=== PATIENT | female | born 1990 | race Caucasian/White ===

== ENCOUNTER 2016-05-23 04:32 | Emergency (ER) | payer OTHER ==
[2016-05-23 04:49] VITALS: TEMP 98.6; BMI 41.6
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
[2016-05-23] MEDS ORDERED: SODIUM CHLORIDE 0.9% 500 ML INFUS.BAG IV ONE (05:02)
[2016-05-23 06:58] LABS: BASOPHIL 0.4 % (0-2.0); EOSINOPHIL 0.8 % (0-4.5); MCH 23.7 pg (25.7-33.7); MCHC 33.2 g/dl (32.0-36.0); MEAN CELL VOLUME 71.5 fl (80-96); MEAN PLT VOLUME 7.5 fl (7.5-11.1); NEUTROPHILS 76.4 % (42.8-82.8); PLATELET COUNT 319 K/MM3 (134-434); RDW 16.9 % (11.6-15.6); WHITE BLOOD COUNT 10.3 K/mm3 (4.0-10.0)
[2016-05-23] MEDS ORDERED: ACETAMINOPHEN 325 MG TABLET (FP) PO ONE (07:28)
[2016-05-23 07:32] LABS: INR 1.09 (0.82-1.09)
[2016-05-23 07:40] LABS: ALBUMIN 3.9 g/dl (3.4-5.0); ANION GAP 9 (8-16); BILIRUBIN,TOTAL 0.2 mg/dL (0.2-1.0); CALCIUM 9.4 mg/dL (8.5-10.1); CO2 25 mmol/L (21-32); CREATININE 0.7 mg/dL (0.55-1.02); GLUCOSE,RANDOM 94 mg/dL (74-106); SGOT/AST 19 U/L (15-37); SGPT/ALT 36 U/L (12-78); TOT PROT 8.9 g/dl (6.4-8.2)
[2016-05-23 07:41] LABS: ALK PHOS 95 U/L (45-117)
[2016-05-23] MEDS ORDERED: ACETAMINOPHEN 325 MG TABLET (FP) ONE (08:22)
[2016-05-23 11:48] VITALS: BP 118/70; PULSE 89
== END 2016-05-23 11:49 | disposition home or self-care (01) ==
LOC: JER 04:32
DX: S93.402A Sprain of unspecified ligament of left ankle, initial encounter (principal); V09.29XA Pedestrian injured in traffic accident involving other motor vehicles, initial encounter; Y92.414 Local residential or business street as the place of occurrence of the external cause; Y93.89 Activity, other specified; Y99.8 Other external cause status
CPT/HCPCS: 36415; 71010-TC; 73590-TC-LT; 73610-TC-LT; 73630-TC-LT; 80053; 84702; 85025; 85610; 85730; 86850; 86900; 86901; 99284-25

== ENCOUNTER 2016-05-27 19:36 | Emergency (ER) | payer OTHER ==
[2016-05-27 19:50] VITALS: BP 124/96; PULSE 98; TEMP 98.1; BMI 41.6
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
[2016-05-27] MEDS ORDERED: ACETAMINOPHEN 500 MG TABLET (FP) PO ONE (20:39)
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
[2016-05-27] MEDS ORDERED: ACETAMINOPHEN 325 MG TABLET (FP) ONE (20:41)
== END 2016-05-27 21:28 | disposition home or self-care (01) ==
LOC: JERFT 19:36
DX: F07.81 Postconcussional syndrome (principal); V03.10XA Pedestrian on foot injured in collision with car, pick-up truck or van in traffic accident, initial encounter; Y92.414 Local residential or business street as the place of occurrence of the external cause; Y93.89 Activity, other specified
CPT/HCPCS: 70450-TC; 84703; 99281-25

== ENCOUNTER 2016-11-20 18:03 | Emergency (ER) | payer OTHER ==
[2016-11-20 18:16] VITALS: BP 126/72; PULSE 79; TEMP 99.1; BMI 47.2
--- NOTE | 2016-11-20 19:17 | PDOC ---
History of Present Illness - General Chief Complaint: Ear Problem Stated Complaint: EAR INFECTION Time Seen by Provider: 11/20/16 18:36 - History of Present Illness Initial Comments: 11/20/16 19:16 CHIEF COMPLAINT: ear pain HISTORY OF PRESENT ILLNESS: 26 yo F with hx of asthma, anxiety, and "anger issues" presents to fast track with R ear pain since today. She reports that she woke up this morning with "an ear infection" and went to her PCP. She was given ear drops "that started with a C and had steroids in it", but this afternoon the swelling and pain worsened after she used the drops. She reports pain "all around my ear, behind my ear, and down my jaw." She denies any fever , chills, nausea, vomiting, or diarrhea. Patient reports the pain is an 8/10. PAST MEDICAL HISTORY: Denies past medical history FAMILY HISTORY: Denies SOCIAL HISTORY: Denies tobacco, alcohol, illicit drug use. SURGICAL HISTORY: Denies ALLERGIES: mushrooms, sulfa REVIEW OF SYSTEMS General/Constitutional: Denies fever or chills. Denies weakness, weight change. HEENT: R ear pain since this morning. Denies change in vision.Denies sore throat. Cardiovascular: Denies chest pain or shortness of breath. Respiratory: Denies cough, wheezing, or hemoptysis. Gastrointestinal: Denies nausea, vomiting, diarrhea or constipation. Denies rectal bleeding. Genitourinary: Denies dysuria, frequency, or change in urination. Musculoskeletal: Denies joint or muscle swelling or pain. Denies neck or back pain. Skin and breasts: Denies rash or easy bruising. PHYSICAL EXAM General Appearance: Well-appearing, appropriately dressed. No apparent distress. HEENT: Markedly tender, erythematous, and edematous R auditory canal. TM not visualized due to significant AC swelling. Tenderness to palpation to R temporal bone and over R mastoid. EOMI, PERRLA, normal ENT inspection, normal voice, TMs normal, pharynx normal. No conjunctival pallor. No photophobia, scleral icterus. Neck: Supple. Trachea midline. No tenderness, rigidity, carotid bruit, stridor , lymphadenopathy, or thyromegaly. Respiratory/Chest: Lungs CTAB. Cardiovascular: RRR. S1, S2. Musculoskeletal/Extremities: Normal inspection. FROM of all extremities, normal capillary refill. Pelvis Stable. No CVA tenderness. No tenderness to extremities, pedal edema, swelling, erythema or deformity. Integumentary: Appropriate color, dry, warm. No cyanosis, erythema, jaundice or rash Neurologic: weight guesser II-XII intact. Fully oriented, alert. Appropriate mood/affect. Motor strength 5/5. No appreciable EOM palsy, facial droop or sensory deficit. Past History - Past Medical History Allergies/Adverse Reactions: Allergies Allergy/AdvReac Type Severity Reaction Status Date / Time mushroom Allergy Severe Verified 11/20/16 18:13 Sulfa (Sulfonamide Allergy Intermediate Rash Verified 11/20/16 18:13 Antibiotics) [Sulfa(Sulfonamide Antibiotics)] Home Medications: Ambulatory Orders Amoxicillin/Potassium Clav [Augmentin 875-125 Tablet] 1 each PO BID #14 tablet 11/20/16 Asthma: Yes Cancer: No Cardiac Disorders: No Diabetes: No HTN: No Psychiatric Problems: Yes (ANXIETY/depression) Seizures: No Thyroid Disease: No - Reproductive History (#): 2 Para: 2 Cervical CA: No Dysfunctional Uterine Bleeding: No Ectopic : No Endometrial CA: No Polycystic Ovaries: No Therapeutic (s) & number: No Tubal Ligation: No Spontaneous : 0 - Immunization History Td Vaccination: Yes TDAP Vaccination: Yes Immunization Up to Date: Yes - Psycho/Social/Smoking Cessation Hx Anxiety: No Suicidal Ideation: No Smoking Status: No Smoking History: Current every day smoker Have you smoked in the past 12 months: Yes Number of Cigarettes Smoked Daily: 4 Information on smoking cessation initiated: No 'Breaking Loose' booklet given: 05/27/16 Hx Alcohol Use: No Drug/Substance Use Hx: No Substance Use Type: None Hx Substance Use Treatment: No *Physical Exam - Vital Signs Last Vital Signs Temp Pulse Resp BP Pulse Ox 99.1 F 79 19 126/72 100 11/20/16 18:13 11/20/16 18:13 11/20/16 18:13 11/20/16 18:13 11/20/16 18:13 ED Treatment Course - LABORATORY CBC & Chemistry Diagram: 11/20/16 21:30 11/20/16 21:30 - RADIOLOGY Radiology Studies Ordered: Category Date Time Status TEMPORAL BONES CT W/O CONTRAST [CT] Stat CT Scan 11/20/16 19:15 Ordered Medical Decision Making - Medical Decision Making 11/20/16 19:28 26 yo F with hx of asthma, anxiety, and "anger issues" presents to fast track with R ear pain since today. -urine preg -Temporal bone CT r/o mastoiditis 11/20/16 21:21 CT results: Partial opacification of the right middle ear with mild thickening of TM suggestive of OM. The ossicles repair unremarkable without evidence of bone destruction. There is also minimal effusion to the right mastoid air cells superiorly/medially without evidence of bone destruction/loss of septations. -CBC, CMP, ESR/CRP 11/20/16 22:45 Discussed case with covering ENT MD Woodall, who states patient should be placed on Augmentin as well as have a wick placed. Patient is to f/u in outpatient in office on Wednesday for wick removal/replacement. *DC/Admit/Observation/Transfer Diagnosis at time of Disposition: Otitis externa Qualifiers: Otitis externa type: unspecified type Chronicity: acute Laterality: right Qualified Code(s): H60.501 - Unspecified acute noninfective otitis externa, right ear - Discharge Dispostion Disposition: HOME Condition at time of disposition: Stable Admit: No - Prescriptions Prescriptions: Amoxicillin/Potassium Clav [Augmentin 875-125 Tablet] 1 each PO BID #14 tablet - Patient Instructions Printed Discharge Instructions: DI for Otitis Externa Additional Instructions: Please take medications as prescribed. Continue using the ear drops as prescribed by your primary care doctor. Follow up with ENT on WEDNESDAY as discussed for wick removal/replacement. If you experience any fever, nausea, vomiting, chills, diarrhea, or any new or worsening symptoms, please return to the ER.
[2016-11-20 21:56] LABS: BASOPHIL 0.2 % (0-2.0); EOSINOPHIL 0.7 % (0-4.5); MCH 23.9 pg (25.7-33.7); MCHC 32.8 g/dl (32.0-36.0); MEAN CELL VOLUME 72.9 fl (80-96); MEAN PLT VOLUME 8.6 fl (7.5-11.1); NEUTROPHILS 76.2 % (42.8-82.8); PLATELET COUNT 266 K/MM3 (134-434); RDW 16.8 % (11.6-15.6); WHITE BLOOD COUNT 11.4 K/mm3 (4.0-10.0)
[2016-11-20 22:31] LABS: ALBUMIN 4.2 g/dl (3.4-5.0); ANION GAP 10 (8-16); C-REACTIVE PROTEIN 5.2 MG/DL (0.00-0.3); CALCIUM 9.3 mg/dL (8.5-10.1); CO2 26 mmol/L (21-32); CREATININE 0.7 mg/dL (0.55-1.02); GLUCOSE,RANDOM 73 mg/dL (74-106); SGOT/AST 12 U/L (15-37); SGPT/ALT 18 U/L (12-78)
[2016-11-20 22:32] LABS: ALK PHOS 85 U/L (45-117); BILIRUBIN,TOTAL 0.5 mg/dL (0.2-1.0); TOT PROT 8.9 g/dl (6.4-8.2)
[2016-11-20] MEDS ORDERED: AMOX TR/POT CLAV 875MG/125MG TABLETS (FP) ONE (22:51)
[2016-11-20] MEDS ORDERED: NEOMYCIN/POLYMYXN/HC OTIC SOLUTION 10 ML BOTTLE ONE (22:57)
[2016-11-20] MEDS ORDERED: AMOX TR/POT CLAV 875MG/125MG TABLETS (FP) PO ONE (23:03)
== END 2016-11-20 23:06 | disposition home or self-care (01) ==
LOC: JERFT 18:03
DX: H60.501 Unspecified acute noninfective otitis externa, right ear (principal); F41.9 Anxiety disorder, unspecified; R45.4 Irritability and anger; J45.909 Unspecified asthma, uncomplicated
CPT/HCPCS: 36415; 70480-TC; 80053; 84703; 85025; 85651; 86140; 99281-25

== ENCOUNTER 2017-03-15 09:38 | Emergency (ER) | payer OTHER ==
[2017-03-15 09:44] VITALS: BP 106/51; PULSE 106; TEMP 98.1; BMI 46.0
[2017-03-15] MEDS ORDERED: ONDANSETRON *ODT* 4 MG TABLET SL ONE (11:31)
--- NOTE | 2017-03-15 11:36 | PDOC ---
History of Present Illness - General Chief Complaint: Nausea/Vomiting Stated Complaint: vomiting after eating [employer] Time Seen by Provider: 03/15/17 10:33 History Source: Patient Exam Limitations: No Limitations - History of Present Illness Travel History: No Initial Comments: 03/15/17 11:31 patient here with all of family suffering from same symptoms. States ate [employer] last night at approximately 5 AM woke up all vomiting hamburger and yi fries. Toddler daughter and 2 sons are ill with same. Denies fever, denies any ear or throat pain, no cough, no diarrhea Timing/Duration: reports: intermittent Quality: reports: mild, moderate, aching Abdominal Pain Onset Location: reports: generalized abdomen Pain Radiation: reports: no radiation Activities at Onset: reports: none Past History - Travel Traveled outside of the country in the last 30 days: No Close contact w/someone who was outside of country & ill: No - Past Medical History Allergies/Adverse Reactions: Allergies Allergy/AdvReac Type Severity Reaction Status Date / Time mushroom Allergy Severe Verified 03/15/17 09:46 Sulfa (Sulfonamide Allergy Intermediate Rash Verified 03/15/17 09:46 Antibiotics) [Sulfa(Sulfonamide Antibiotics)] Home Medications: Ambulatory Orders Ondansetron [Zofran *Odt*] 4 mg SL PRN PRN #14 od.tablet 03/15/17 Asthma: Yes Cancer: No Cardiac Disorders: No COPD: No Diabetes: No HTN: No Psychiatric Problems: Yes (ANXIETY/depression) Seizures: No Thyroid Disease: No - Reproductive History (#): 2 Para: 2 Cervical CA: No Dysfunctional Uterine Bleeding: No Ectopic : No Endometrial CA: No Polycystic Ovaries: No Therapeutic (s) & number: No Tubal Ligation: No Spontaneous : 0 - Immunization History Td Vaccination: Yes TDAP Vaccination: Yes Immunization Up to Date: Yes - Suicide/Smoking/Psychosocial Hx Smoking Status: No Smoking History: Current every day smoker Have you smoked in the past 12 months: Yes Number of Cigarettes Smoked Daily: 10 Information on smoking cessation initiated: Yes 'Breaking Loose' booklet given: 03/15/17 Hx Alcohol Use: No Drug/Substance Use Hx: No Substance Use Type: None Hx Substance Use Treatment: No Review of Systems - Review of Systems Able to Perform ROS?: Yes Is the patient limited Kiswahili proficient: Yes Constitutional: Yes: Symptoms Reported, See HPI, Loss of Appetite, Malaise. No : Chills, Fever HEENTM: Yes: See HPI. No: Symptoms Reported, Eye Pain Respiratory: Yes: See HPI. No: Symptoms reported, Cough ABD/GI: Yes: Symptoms Reported, See HPI, Diarrhea, Nausea, Poor Appetite, Vomiting (x 6) : Yes: See HPI. No: Symptoms Reported, Burning, Dysuria Musculoskeletal: No: Symptoms Reported All Other Systems: Reviewed and Negative *Physical Exam - Vital Signs Last Vital Signs Temp Pulse Resp BP Pulse Ox 98.1 F 106 H 19 106/51 98 03/15/17 09:41 03/15/17 09:41 03/15/17 09:41 03/15/17 09:41 03/15/17 09:41 - Physical Exam General Appearance: Yes: Nourished, Appropriately Dressed, Apparent Distress, Mild Distress HEENT: positive: YVON, Normal ENT Inspection, TMs Normal, Pharynx Normal Neck: positive: Tender, Supple. negative: Lymphadenopathy (R), Lymphadenopathy (L) Respiratory/Chest: positive: Lungs Clear, Normal Breath Sounds Gastrointestinal/Abdominal: positive: Normal Bowel Sounds, Soft. 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 We'll treat with Zofran and conservative measures *DC/Admit/Observation/Transfer Diagnosis at time of Disposition: Food poisoning Qualifiers: Encounter type: initial encounter Injury intent: undetermined intent Qualified Code(s): T62.94XA - Toxic effect of unspecified noxious substance eaten as food , undetermined, initial encounter - Discharge Dispostion Disposition: HOME Condition at time of disposition: Stable Admit: No - Referrals Referrals: Nedra Hernandez MD [Primary Care Provider] - - Patient Instructions Printed Discharge Instructions: DI for Vomiting -- Adult Additional Instructions: Rest, drink lots of fluids: Teas, water, soups Laura antoinette, carbonated beverages for the bubbles May try peppermint teas Avoid heavy , spicy or fatty foods until symptoms have resolved Avoid contact with others until fevers and symptoms resolved Lots of handwashing and good hygiene Continue [id number]-kld-gaplnsm medications for symptomatic relief Tylenol or Motrin for fever and pain May use Zofran-one tablet dissolved on tongue as needed for nauseousness. May repeat times one every 8 hours Followup with private physician in one to 2 days as needed Return to emergency department for worsened symptoms, fevers, dehydration - Post Discharge Activity Forms/Work/School Notes: Back to Work
[2017-03-15] MEDS ORDERED: ONDANSETRON *ODT* 4 MG TABLET ONE (11:39)
== END 2017-03-15 11:42 | disposition home or self-care (01) ==
LOC: JERFT 09:38 → JER 09:38 → JERFT 11:42
DX: T62.8X1A Toxic effect of other specified noxious substances eaten as food, accidental (unintentional), initial encounter (principal); R11.2 Nausea with vomiting, unspecified; Y92.511 Restaurant or cafe as the place of occurrence of the external cause
CPT/HCPCS: 99281-25

== ENCOUNTER 2017-05-08 10:15 | Emergency (ER) | payer OTHER ==
[2017-05-08 10:21] VITALS: BP 120/71; PULSE 116; TEMP 98.2; BMI 46.9
--- NOTE | 2017-05-08 11:28 | PDOC ---
History of Present Illness - General Chief Complaint: Nausea Stated Complaint: NAUSEA Time Seen by Provider: 05/08/17 11:05 History Source: Patient Exam Limitations: No Limitations - History of Present Illness Travel History: No Initial Comments: 05/08/17 11:26 Patient is here with complaints of any breast tenderness, nauseousness, and 5 episodes of vomiting this morning. Is uncertain as to status. LMP March Denies fever, denies dysuria, denies any vaginal drainage or discharge. Timing/Duration: reports: getting worse Abdominal Pain Onset Location: reports: suprapubic, generalized abdomen Pain Radiation: reports: no radiation Past History - Travel Traveled outside of the country in the last 30 days: No Close contact w/someone who was outside of country & ill: No - Past Medical History Allergies/Adverse Reactions: Allergies Allergy/AdvReac Type Severity Reaction Status Date / Time mushroom Allergy Severe Verified 05/08/17 10:21 Sulfa (Sulfonamide Allergy Intermediate Rash Verified 05/08/17 10:21 Antibiotics) [Sulfa(Sulfonamide Antibiotics)] Home Medications: Ambulatory Orders Ondansetron [Zofran *Odt*] 4 mg SL PRN PRN #14 od.tablet 03/15/17 Asthma: Yes Cancer: No Cardiac Disorders: No COPD: No Diabetes: No HTN: No Psychiatric Problems: Yes (ANXIETY/depression) Seizures: No Thyroid Disease: No - Reproductive History (#): 2 Para: 2 Cervical CA: No Dysfunctional Uterine Bleeding: No Ectopic : No Endometrial CA: No Polycystic Ovaries: No Therapeutic (s) & number: No Tubal Ligation: No Spontaneous : 0 - Immunization History Td Vaccination: Yes TDAP Vaccination: Yes Immunization Up to Date: Yes - Suicide/Smoking/Psychosocial Hx Smoking Status: No Smoking History: Current every day smoker Have you smoked in the past 12 months: Yes Number of Cigarettes Smoked Daily: 5 Information on smoking cessation initiated: No 'Breaking Loose' booklet given: 03/15/17 Hx Alcohol Use: No Drug/Substance Use Hx: No Substance Use Type: None Hx Substance Use Treatment: No *Physical Exam - Vital Signs Last Vital Signs Temp Pulse Resp BP Pulse Ox 98.2 F 116 H 20 120/71 98 05/08/17 10:18 05/08/17 10:18 05/08/17 10:18 05/08/17 10:18 05/08/17 10:18 - Physical Exam General Appearance: Yes: Nourished, Appropriately Dressed. No: Apparent Distress HEENT: positive: YVON, Normal ENT Inspection, TMs Normal, Pharynx Normal Neck: positive: Supple. negative: Lymphadenopathy (R), Lymphadenopathy (L) Respiratory/Chest: positive: Lungs Clear, Normal Breath Sounds Gastrointestinal/Abdominal: positive: Normal Bowel Sounds, Tender, Soft. 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 intact, Fully Oriented, Alert, Normal Mood/ Affect, Normal Response, Motor Strength 07/31 ED Treatment Course - ADDITIONAL ORDERS Additional order review: Laboratory Results 05/08/17 11:17 Urine HCG, Qual Negative *DC/Admit/Observation/Transfer Diagnosis at time of Disposition: Gastroenteritis - Discharge Dispostion Disposition: HOME Condition at time of disposition: Stable Admit: No - Referrals - Patient Instructions Printed Discharge Instructions: DI for Viral Gastroenteritis -- Adult Additional Instructions: Rest, drink lots of fluids: Teas, water, soups Laura antoinette, carbonated beverages for the bubbles May try peppermint teas Avoid heavy , spicy or fatty foods until symptoms have resolved Avoid contact with others until fevers and symptoms resolved Lots of handwashing and good hygiene Continue ovqv-pko-mvzzwxs medications for symptomatic relief Tylenol or Motrin for fever and pain May use Zofran-one tablet dissolved on tongue as needed for nauseousness. May repeat times one every 8 hours Followup with private physician in one to 2 days as needed Return to emergency department for worsened symptoms, fevers, dehydration - Post Discharge Activity Forms/Work/School Notes: Back to Work
== END 2017-05-08 12:11 | disposition home or self-care (01) ==
LOC: JERFT 10:15
DX: K52.9 Noninfective gastroenteritis and colitis, unspecified (principal); J45.909 Unspecified asthma, uncomplicated; F41.8 Other specified anxiety disorders; F17.210 Nicotine dependence, cigarettes, uncomplicated
CPT/HCPCS: 84703; 99281-25

== ENCOUNTER 2017-05-15 09:05 | Emergency (ER) | payer OTHER ==
[2017-05-15 09:11] VITALS: BP 133/68; PULSE 97; TEMP 98.2; BMI 46.0
--- NOTE | 2017-05-15 09:27 | PDOC ---
History of Present Illness - General Chief Complaint: Hematuria Stated Complaint: POSSIBLE UTI Time Seen by Provider: 05/15/17 09:25 History Source: Patient Exam Limitations: No Limitations - History of Present Illness Travel History: No Initial Comments: 05/15/17 10:06 Acute onset ofpain and burning, with noted blood in urine this morning With frequency. denies fever, denies back pain, has never had a urinary tract infection. Timing/Duration: reports: constant, getting worse Quality: reports: moderate, aching, sharpness Pain Radiation: reports: no radiation Past History - Past Medical History Allergies/Adverse Reactions: Allergies Allergy/AdvReac Type Severity Reaction Status Date / Time mushroom Allergy Severe Verified 05/15/17 09:08 Sulfa (Sulfonamide Allergy Intermediate Rash Verified 05/15/17 09:08 Antibiotics) [Sulfa(Sulfonamide Antibiotics)] Home Medications: Ambulatory Orders Cephalexin Monohydrate [Keflex -] 500 mg PO Q8H #21 capsule 05/15/17 Phenazopyridine HCl [Pyridium -] 200 mg PO PC #12 tablet 05/15/17 Asthma: Yes Cancer: No Cardiac Disorders: No COPD: No Diabetes: No HTN: No Psychiatric Problems: Yes (ANXIETY/depression) Seizures: No Thyroid Disease: No - Reproductive History (#): 2 Para: 2 Cervical CA: No Dysfunctional Uterine Bleeding: No Ectopic : No Endometrial CA: No Polycystic Ovaries: No Therapeutic (s) & number: No Tubal Ligation: No Spontaneous : 0 - Immunization History Td Vaccination: Yes TDAP Vaccination: Yes Immunization Up to Date: Yes - Suicide/Smoking/Psychosocial Hx Smoking Status: No Smoking History: Current every day smoker Have you smoked in the past 12 months: Yes Number of Cigarettes Smoked Daily: 5 Information on smoking cessation initiated: No 'Breaking Loose' booklet given: 03/15/17 Hx Alcohol Use: No Drug/Substance Use Hx: No Substance Use Type: None Hx Substance Use Treatment: No *Physical Exam - Vital Signs Last Vital Signs Temp Pulse Resp BP Pulse Ox 98.2 F 97 H 18 133/68 100 05/15/17 09:08 05/15/17 09:08 05/15/17 09:08 05/15/17 09:08 05/15/17 09:08 - Physical Exam General Appearance: Yes: Nourished, Appropriately Dressed, Apparent Distress, Mild Distress HEENT: positive: YVON, Normal ENT Inspection, Normal Voice, TMs Normal, Pharynx Normal Neck: positive: Supple. negative: Tender Respiratory/Chest: positive: Lungs Clear Gastrointestinal/Abdominal: positive: Normal Bowel Sounds, Tender, Soft. negative: Flat Musculoskeletal: positive: Normal Inspection. 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, Fully Oriented, Alert, Normal Mood/ Affect, Normal Response, Motor Strength 5/5 Progress Note - Progress Note Progress Note: Urinary Tract infection, we'll treat with Keflex and Pyridium *DC/Admit/Observation/Transfer Diagnosis at time of Disposition: UTI (urinary tract infection) Qualifiers: Urinary tract infection type: acute cystitis Hematuria presence: with hematuria Qualified Code(s): N30.01 - Acute cystitis with hematuria - Discharge Dispostion Disposition: HOME Condition at time of disposition: Stable - Prescriptions Prescriptions: Cephalexin Monohydrate [Keflex -] 500 mg PO Q8H #21 capsule Phenazopyridine HCl [Pyridium -] 200 mg PO PC #12 tablet - Referrals Referrals: Nedra Hernandez MD [Primary Care Provider] - - Patient Instructions Printed Discharge Instructions: DI for Urinary Tract Infection (UTI) Additional Instructions: Rest, drink lots of fluids: Teas, water, soups Avoid contact with others until fevers and symptoms resolved Lots of handwashing and good hygiene Continue vxfp-esg-[id number] medications for symptomatic relief Tylenol or Motrin for fever and pain Continue all of antibiotics until completed Followup with private physician in one week for repeat urinalysis/reevaluation Return to emergency department for worsened symptoms, fevers, dehydration - Post Discharge Activity
[2017-05-15 09:44] LABS: URINE APPEARANCE CLOUDY; URINE BILIRUBIN NEGATIVE (NEGATIVE); URINE BLOOD 3+ (NEGATIVE); URINE COLOR RED; URINE GLUCOSE (UA) NEGATIVE (NEGATIVE); URINE KETONE NEGATIVE (NEGATIVE); URINE NITRITE NEGATIVE (NEGATIVE); URINE UROBILINOGEN NEGATIVE mg/dL (0.2-1.0)
[2017-05-15 09:57] LABS: URINE LEUK ESTERASE 3+ (NEGATIVE); URINE PROTEIN 2+ (NEGATIVE)
[2017-05-15 10:03] LABS: EPI CELLS RARE /HPF (FEW); URINE MUCUS RARE; YEAST FEW
[2017-05-15 10:04] LABS: HCG,QUALITATIVE URINE NEGATIVE
[2017-05-15] MEDS ORDERED: CEPHALEXIN MONOHYDRATE 500 MG CAPSULE (UD) PO ONE (10:08)
[2017-05-15] MEDS ORDERED: PHENAZOPYRIDINE HCL 100 MG TABLET (FP) PO ONE (10:08)
[2017-05-15] MEDS ORDERED: CEPHALEXIN MONOHYDRATE 500 MG CAPSULE (UD) ONE (10:09)
[2017-05-15] MEDS ORDERED: PHENAZOPYRIDINE HCL 100 MG TABLET (FP) ONE (10:09)
--- NOTE | 2017-05-18 08:00 | PDOC ---
Patient Follow-up (Call Back) - Post ED Follow - Up Condition at time of discharge: Stable Disposition at time of original discharge: HOME Reason for Call Back: Abnwl. Microbiology (Sensitive to cephalosporins. Pt. yenifer treated with keflex at this time.)
== END 2017-05-15 10:24 | disposition home or self-care (01) ==
LOC: JERFT 09:05
DX: N30.01 Acute cystitis with hematuria (principal); F41.8 Other specified anxiety disorders; F17.210 Nicotine dependence, cigarettes, uncomplicated
CPT/HCPCS: 81003; 81015; 84703; 87086; 87186; 99281-25

== ENCOUNTER 2017-10-07 05:02 | Day surgery (SDC) | payer OTHER ==
[2017-10-06 10:20] VITALS: BMI 46.0
[2017-10-07] MEDS ORDERED: PHENYLEPHRINE HCL 10 MG/1 ML SINGLE DOSE VIAL ONE (07:02)
[2017-10-07] MEDS ORDERED: KETOROLAC TROMETHAMINE 30 MG/1 ML VIAL ONE (07:02)
[2017-10-07] MEDS ORDERED: LIDOCAINE HCL/PF 2% SDV 5ML VIAL ONE (07:02)
[2017-10-07] MEDS ORDERED: PROPOFOL 20 ML ONE ×2 (07:03)
[2017-10-07] MEDS ORDERED: ePHEDrine SULFATE 50 MG/1 ML AMPULE ONE (07:03)
[2017-10-07] MEDS ORDERED: MIDAZOLAM HCL 2 MG/2 ML SINGLE DOSE VIAL ONE (07:03)
[2017-10-07] MEDS ORDERED: SUCCINYLCHOLINE CHLORIDE 200 MG/10 ML VIAL ONE (07:03)
[2017-10-07] MEDS ORDERED: DEXAMETHASONE SOD PHOSPHATE 4 MG/1 ML VIAL ONE (07:06)
[2017-10-07] MEDS ORDERED: DESFLURANE GAS 240 ML BOTTLE IH ONE (07:10)
[2017-10-07] MEDS ORDERED: IBUPROFEN 800 MG/8 ML IJ IVPB PRN (08:46)
[2017-10-07] MEDS ORDERED: ACETAMINOPHEN 325 MG TABLET (FP) PO PRN (08:46)
--- NOTE | 2017-10-07 08:46 | HP ---
History & Physical Update - History History: No Change - Physical Physical: No Change - Assessment Assessment: No Change - Plan Plan: No Change (agree with H&P from 10/05/17 - missed for suction D&C)
[2017-10-07] MEDS ORDERED: oxyCODONE HCL 5 MG TABLET PO PRN (08:53)
[2017-10-07] MEDS ORDERED: ONDANSETRON 4 MG/2 ML VIAL IVPUSH PRN (08:53)
[2017-10-07] MEDS ORDERED: PROMETHAZINE HCL 25 MG/1 ML VIAL IVPUSH PRN (08:53)
--- NOTE | 2017-10-07 08:54 | OP ---
Operative Note - Note: Operative Date: 10/07/17 ([id number]) Pre-Operative Diagnosis: missed Findings: normal female external genitalia Post-Operative Diagnosis: Same as Pre-op Surgeon: Tracy Chester Anesthesiologist/CYLINDER PRESS OPERATOR HELPER: Kingsley Alston Anesthesia: General (LMA) Specimens Removed: products of conception Estimated Blood Loss (mls): 10 Operative Report Dictated: Yes
[2017-10-07] MEDS ORDERED: LACTATED RINGERS SOLUTION 1,000 ML IV SCH (09:00)
--- NOTE | 2017-10-07 09:22 | OP ---
DATE OF OPERATION: 10/07/2017 PREOPERATIVE DIAGNOSIS: Missed . POSTOPERATIVE DIAGNOSIS: Missed . PROCEDURE: Suction dilatation and curettage. SURGEON: Tracy Chester DO FOOD SERVICE UTILITY WORKER: None. ANESTHESIA: LMA by Dr. Kingsley Alston. COMPLICATIONS: None. ESTIMATED BLOOD LOSS: 10 mL. DISPOSITION: Stable to PACU with sponge and instrument count correct. BRIEF HISTORY AND PROCEDURE: Patient is a 26-year-old female who had been seen in the office with a positive test and followed for several weeks with ultrasounds and beta HCGs. The beta HCGs were not rising appropriately and the ultrasound showed evidence of a missed . The patient was diagnosed on October 05, 2017, and the patient was counseled on her options and she elected to undergo dilation and curettage. The patient was admitted to [facility] on October 07, 2017. Consent for the procedure was signed. She was then taken back to the operating room and placed in the dorsal lithotomy position and given LMA anesthesia by Dr. Kingsley Alston. She was prepped and draped in the usual sterile fashion and a hard timeout was performed. A speculum was placed inside the vagina. The anterior lip of the cervix was grasped with a tenaculum and the cervix was dilated to accommodate a 7 curved suction curet which was advanced to the fundus. Several passes of the curved curet were completed to remove tissue. One pass on all 4 rodríguez of the uterus with a sharp curet was completed and adequate uterine cri was noted. Two more passes with the suction curet were completed to remove all the remaining tissue and debris and then all instruments were removed from the cervix and the uterus. Minimal bleeding was noted from the cervical os. Any bleeding from the tenaculum sites was stopped with a brief application of an Allis clamp and then all instruments were removed. All sponges and instruments were counted and noted to be correct. The patient was awoken from anesthesia and recovering in a stable condition in the PACU at the time of this dictation. TRACY CHESTER DO /[id number]
[2017-10-07 09:56] VITALS: PULSE 71
[2017-10-07 11:04] VITALS: BP 114/58; TEMP 98.7
--- NOTE | 2017-10-08 17:13 | PATH ---
Surgical Pathology Report Patient Name: ASHLY DEL ROSARIO Med. Rec. #: [id number] /Age/Gender: 1990 (Age: 26) / F Account: [id number] Location: [facility] SURGICAL Taken: 10/07/2017 Received: 10/07/2017 Reported: 10/08/2017 Physicians: Tracy Chester M.D. Specimen(s) Received PRODUCTS OF CONCEPTION (ALSO PLACED TISSUE IN RPMI) Clinical History Missed Final Diagnosis LABELED "CHROMOSOMAL ANALYSIS", POC REMOVAL: CHORIONIC VILLI PRESENT, CONSISTENT WITH PRODUCTS OF CONCEPTION. Electronically Signed Darryl Burk M.D. Gross Description Received fresh labeled "chromosome analysis," is a 9.5 x 7.5 x 2.0 cm aggregate of randolph-red soft tissue fragments admixed with blood clot. Possible villous tissue is identified. No somatic tissue is identified. A retail field representative portion is placed in RPMI solution and sent for chromosomal analysis. Additional retail field representative portions are submitted in 3 cassettes. /10/07/2017 saudi/10/07/2017
== END 2017-10-07 10:40 | disposition home or self-care (01) ==
LOC: JASU-SURG 05:02
PROVIDERS: ATTEND Obstetrics & Gynecology
PROC: 10D17ZZ Extraction of Products of Conception, Retained, Via Natural or Artificial Opening (ICD-10-PCS; principal; 2017-10-07 08:00)
DX: O02.1 Missed abortion (principal)
CPT/HCPCS: 88305-TC; 94760

== ENCOUNTER 2017-10-10 19:37 | Emergency (ER) | payer OTHER ==
[2017-10-10 19:45] VITALS: BP 112/93; PULSE 92; TEMP 98.4; BMI 46.0
[2017-10-10] MEDS ORDERED: SODIUM CHLORIDE 1,000 ML IV STA (20:35)
[2017-10-10] MEDS ORDERED: morphine CARPU-JECT 4 MG/1 ML DISP.SYRIN IVPUSH ONE (20:35)
--- NOTE | 2017-10-10 20:37 | PDOC ---
History of Present Illness - General Chief Complaint: Pain Stated Complaint: PAIN Time Seen by Provider: 10/10/17 20:20 History Source: Patient, Old Records Exam Limitations: No Limitations - History of Present Illness Initial Comments: 10/10/17 20:33 This is a 26-year-old woman with past medical history of asthma who presents emergency Department with abdominal cramping and vaginal bleeding status post D& C on 10/07. Patient is . Patient states she was pain free until approximately 8:00 yesterday evening when she began to experience lower abdominal cramping stronger than her usual menstrual cramps which she describes as "active labor." Patient states the pain is tolerable with prescription medication she received status post D&C twice today at approximately 5 PM began to have heavy vaginal bleeding. Patient states she has soaked 4 heavy flow overnight pads since 5:00 this evening. Patient reports feeling dizzy. She denies fevers, chills, vaginal discharge, shortness of breath, nausea, vomiting , dysuria or rectal bleeding. Past History - Past Medical History Allergies/Adverse Reactions: Allergies Allergy/AdvReac Type Severity Reaction Status Date / Time mushroom Allergy Severe Verified 10/07/17 06:17 Sulfa (Sulfonamide Allergy Intermediate Rash Verified 10/07/17 06:17 Antibiotics) [Sulfa(Sulfonamide Antibiotics)] Home Medications: Ambulatory Orders NK [No Known Home Medication] 10/06/17 Anemia: No Asthma: Yes Cancer: No Cardiac Disorders: No CVA: No COPD: No CHF: No DVT: No Dementia: No Diabetes: No GI Disorders: No Disorders: Yes (misscarriage) HTN: No Hypercholesterolemia: No Liver Disease: No Psychiatric Problems: Yes (ANXIETY/depression) Seizures: No Thyroid Disease: No - Surgical History Orthopedic Surgery: Yes (left ankle) - Reproductive History (#): 2 Para: 2 Cervical CA: No Dysfunctional Uterine Bleeding: No Ectopic : No Endometrial CA: No Polycystic Ovaries: No Therapeutic (s) & number: No Tubal Ligation: No Spontaneous : 0 - Immunization History Td Vaccination: Yes TDAP Vaccination: Yes Immunization Up to Date: Yes - Suicide/Smoking/Psychosocial Hx Smoking Status: No Smoking History: Current some day smoker Have you smoked in the past 12 months: No Number of Cigarettes Smoked Daily: 5 Information on smoking cessation initiated: Yes 'Breaking Loose' booklet given: 03/15/17 Hx Alcohol Use: No Drug/Substance Use Hx: No Substance Use Type: None Hx Substance Use Treatment: No Review of Systems - Review of Systems Able to Perform ROS?: Yes Is the patient limited Latvian proficient: No Constitutional: No: Symptoms Reported HEENTM: No: Symptoms Reported Respiratory: No: Symptoms reported Cardiac (ROS): Yes: See HPI ABD/GI: Yes: See HPI : No: Symptoms Reported Musculoskeletal: No: Symptoms Reported Integumentary: No: Symptoms Reported Neurological: No: Symptoms reported Endocrine: No: Symptoms Reported Hematologic/Lymphatic: No: Symptoms Reported *Physical Exam - Vital Signs Last Vital Signs Temp Pulse Resp BP Pulse Ox 98.4 F 92 H 20 112/93 100 10/10/17 19:42 10/10/17 19:42 10/10/17 19:42 10/10/17 19:42 10/10/17 19:42 - Physical Exam General Appearance: Yes: Appropriately Dressed, Obese. No: Apparent Distress HEENT: positive: EOMI, YVON, Normal Voice, Pharynx Normal, Pale Conjunctivae Neck: positive: Trachea midline, Supple Respiratory/Chest: positive: Lungs Clear, Normal Breath Sounds. negative: Respiratory Distress, Accessory Muscle Use Cardiovascular: positive: Regular Rhythm, Regular Rate, S1, S2. negative: Edema , Murmur Comments:: 10/10/17 20:48 Pelvic exam performed with SKYLAR Reddy at bedside to liquor establishment manager Female Pelvic Exam: positive: normal external exam, cervical os closed, normal adnexa, vaginal bleeding. negative: CMT, discharge, lesions, adnexal tenderness Gastrointestinal/Abdominal: positive: Normal Bowel Sounds, Tender (diffuse lower abdomen), Soft Musculoskeletal: positive: Normal Inspection. negative: CVA Tenderness Extremity: positive: Normal Inspection Integumentary: positive: Normal Color, Dry, Warm Neurologic: positive: software deployment engineer II-XII NML intact, Fully Oriented, Alert, Normal Mood/ Affect, Normal Response, Motor Strength / ED Treatment Course - LABORATORY CBC & Chemistry Diagram: 10/10/17 21:24 10/10/17 21:24 Medical Decision Making - Medical Decision Making 10/10/17 20:49 A/P: 26-year-old woman with lower abdominal cramping and vaginal bleeding status post D&C 10/07 Pale conjunctiva Abdomen tender to palpation in lower quadrants Pelvic exam performed with SKYLAR Reddy liquor establishment manager Normal external exam Ayo blood noted in vaginal vault. No clots present No discharge present Cervical os closed Vital signs notable for heart rate of 92 Differential diagnosis includes septic , uterine perforation, hemorrhage , retained products, endometritis Labs including type and screen, blood cultures and lactate, urine, transvaginal ultrasound, IV fluids, morphine 4 mg IV now Testing is resulted I will contact the patient's ELECTRIC POWER LINE EXAMINER doctor Freddy 10/11/17 00:44 Pelvic ultrasound is read by imaging review consultant: the endometrial complex measured 1.25 cm and is somewhat heterogenous. since the endometrium is heterogenous and the patient is bleeding, retained products should be considered and evaluation recommended. Cervix is 3.1 cm is enclosed. Evaluation of the right ovary was limited. Poorly visualized but probably normal size. Appointment 3 mm left ovarian cyst. Remainder left ovary is normal. There is positive Doppler blood flow to the left ovary. No free fluid Bleeding is currently stopped and pain has diminished to less than her usual period. Given abdominal exam reveals soft abdomen peritonitis and perforation is less likely. Given direct visualization under DNC retained products is less likely. Also beta hCG decreased from 19,000-1200 since procedure. Hemoglobin decreased at 10.8 from labs taken preprocedure. Urinalysis reveals 3+ blood otherwise unremarkable. Patient's pain and bleeding is likely just postprocedure pain and bleeding. I will call the patient's ELECTRIC POWER LINE EXAMINER to discuss the case. Likely discharge 10/11/17 00:[address] Chester who states the patient to be seen at her previously scheduled appointment of 10/20. I discussed the physical exam findings, ancillary test results and final diagnoses with the patient. I answered all of the patient's questions. The patient was satisfied with the care received and felt comfortable with the discharge plan and treatment plan. The patient will call their primary care physician within 24 hours to arrange follow-up and will return to the Emergency Department with any new, persistent or worsening symptoms. *DC/Admit/Observation/Transfer Diagnosis at time of Disposition: Postoperative vaginal bleeding - Discharge Dispostion Disposition: HOME Condition at time of disposition: Fair Decision to Admit order: No - Referrals Referrals: Tracy Chester DO [Staff Physician] - - Patient Instructions Additional Instructions: Keep your previously scheduled appointment with Dr. Hayes. Take Tylenol or Motrin as needed for fever and/or pain. Follow workers compensation adjuster's instructions for appropriate dosage. For any concerns call Dr. Chester for reevaluation sooner. Return to emergency department for worsening bleeding, worsening pain, dizziness , lightheadedness, chest pain shortness of breath or any other concerns. Thank you very much for choosing us to provide your emergent health care needs. - Post Discharge Activity
[2017-10-10] MEDS ORDERED: morphine SULFATE 4 MG/ML VIAL ONE (21:03)
[2017-10-10] MEDS ORDERED: ACETAMINOPHEN 1000 MG/100 ML VIAL (NON FORMULARY) IVPB ONE (21:34)
[2017-10-10 21:37] LABS: BASO % 0.3 % (0-2.0); EOS % 2.2 % (0-4.5); HEMATOCRIT 32.4 % (32.4-45.2); HEMOGLOBIN 10.8 GM/dL (10.7-15.3); LYMPH % 27.6 % (8-40); MCH 25.2 pg (25.7-33.7); MCHC 33.4 g/dl (32.0-36.0); MEAN CELL VOLUME 75.7 fl (80-96); MEAN PLT VOLUME 7.8 fl (7.5-11.1); MONO % 6.1 % (3.8-10.2); NEUT % 63.8 % (42.8-82.8); PLATELET COUNT 264 K/MM3 (134-434); RBC 4.29 M/mm3 (3.60-5.2); RDW 16.4 % (11.6-15.6); WHITE BLOOD COUNT 8.1 K/mm3 (4.0-10.0)
[2017-10-10] MEDS ORDERED: ACETAMINOPHEN INJECTION 100 ML IVPB ONE (21:38)
[2017-10-10 22:04] LABS: INR 1.07 (0.82-1.09); PROTHROMBIN TIME (PATIENT) 12.1 SEC (9.7-13.0)
[2017-10-10 22:06] LABS: ALBUMIN 3.5 g/dl (3.4-5.0); ANION GAP 5 (8-16); BILIRUBIN,TOTAL 0.2 mg/dL (0.2-1.0); BLOOD UREA NITROGEN 13 mg/dL (7-18); CALCIUM 8.9 mg/dL (8.5-10.1); CHLORIDE 106 mmol/L (98-107); CO2 29 mmol/L (21-32); CREATININE 0.7 mg/dL (0.55-1.02); GLUCOSE,RANDOM 83 mg/dL (74-106); SGOT/AST 8 U/L (15-37); SGPT/ALT 17 U/L (12-78); SODIUM 140 mmol/L (136-145); TOT PROT 7.7 g/dl (6.4-8.2)
[2017-10-10 22:06] LABS: URINE APPEARANCE CLEAR; URINE BILIRUBIN NEGATIVE (<2.0 mg/dL); URINE COLOR LTYELLOW; URINE GLUCOSE (UA) NEGATIVE (NEGATIVE); URINE KETONE NEGATIVE (NEGATIVE); URINE LEUK ESTERASE NEGATIVE (NEGATIVE); URINE NITRITE NEGATIVE (NEGATIVE); URINE PROTEIN NEGATIVE (NEGATIVE); URINE UROBILINOGEN NEGATIVE mg/dL (0.2-1.0)
[2017-10-10 22:07] LABS: ALK PHOS 63 U/L (45-117)
[2017-10-10 23:23] LABS: EPI CELLS RARE /HPF (FEW)
[2017-10-10 23:24] LABS: URINE MUCUS RARE
--- NOTE | 2017-10-11 13:23 | EKG ---
Test Reason : Blood Pressure : / mmHG Vent. Rate : 065 BPM Atrial Rate : 065 BPM P-R Int : 140 ms QRS Dur : 082 ms QT Int : 442 ms P-R-T Axes : 031 043 032 degrees QTc Int : 459 ms NORMAL SINUS RHYTHM NORMAL ECG WHEN COMPARED WITH ECG OF 26-SEP-2013 16:33, VENT. RATE HAS DECREASED BY 44 BPM Confirmed by JOHNNA HOLLAND MD ([id number]) on 10/11/2017 1:22:57 PM Referred By: Confirmed By:JOHNNA HOLLAND MD
== END 2017-10-11 01:13 | disposition home or self-care (01) ==
LOC: JER 19:37
PROC: 3E0337Z Introduction of Electrolytic and Water Balance Substance into Peripheral Vein, Percutaneous Approach (ICD-10-PCS; principal; 2017-10-10)
PROC: 3E033NZ Introduction of Analgesics, Hypnotics, Sedatives into Peripheral Vein, Percutaneous Approach (ICD-10-PCS; 2017-10-10)
DX: N99.820 Postprocedural hemorrhage of a genitourinary system organ or structure following a genitourinary system procedure (principal)
CPT/HCPCS: 36415; 76830-TC; 80053; 81003; 81015; 83605; 84702; 84703; 85025; 85610; 86850; 86900; 86901; 87040; 87086; 93005; 93010; 96361; 96374; 99282-25; J0131; J7030

== ENCOUNTER 2017-12-15 17:00 | Emergency (ER) | payer OTHER ==
[2017-12-15 17:10] VITALS: BP 112/68; PULSE 104; TEMP 99.2; BMI 46.0
--- NOTE | 2017-12-15 17:10 | PDOC ---
Rapid Medical Evaluation Time Seen by Provider: 12/15/17 17:04 Medical Evaluation: Allergies Allergy/AdvReac Type Severity Reaction Status Date / Time mushroom Allergy Severe Verified 10/07/17 06:17 Sulfa (Sulfonamide Allergy Intermediate Rash Verified 10/07/17 06:17 Antibiotics) [Sulfa(Sulfonamide Antibiotics)] 12/15/17 17:04 I have performed a brief in-person evaluation of this patient. The patient presents with a chief complaint of: L face numbness/tingling w/ inability to close L eye or raise brows, similar to R sided Marshall several yrs ago that resolved after 1 month. Currently on abx for L ear infection. Seen by ENT today and referred to ED Pertinent physical exam findings:stable, unable to fully close L eye or raise L brow I have ordered the following:nothing The patient will proceed to the ED for further evaluation. Discharge Disposition - Diagnosis Nicole's palsy, Left ear pain - Referrals Referrals: Nedra Hernandez MD [Primary Care Provider] - - Patient Instructions - Post Discharge Activity
--- NOTE | 2017-12-15 17:28 | PDOC ---
History of Present Illness - General Chief Complaint: Ear Problem Stated Complaint: LT EAR PAIN, FACE SWELLING Time Seen by Provider: 12/15/17 17:04 History Source: Patient Exam Limitations: No Limitations - History of Present Illness Initial Comments: 12/15/17 17:36 Pt c/o 2 days numbness to left cheek unable to close left eye completely , numbness to the outer aspect of upper lip and pain to the left jaw. 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 Pt currently being treated with Augmentin and ciprodex for left ear infection. Pt has a wick in place, saw ENT today. PT denies fever, is tearful. 12/15/17 17:38 12/15/17 17:39 Past History - Past Medical History Allergies/Adverse Reactions: Allergies Allergy/AdvReac Type Severity Reaction Status Date / Time mushroom Allergy Severe Verified 12/15/17 17:05 Sulfa (Sulfonamide Allergy Intermediate Rash Verified 12/15/17 17:05 Antibiotics) [Sulfa(Sulfonamide Antibiotics)] Home Medications: Ambulatory Orders Acyclovir [Zovirax -] 400 mg PO 5XD #70 capsule 12/15/17 Mineral Oil/Petrolatum,White [Artificial Tears Eye Ointment] 3.5 gm OP TID #1 oint...g. 12/15/17 Prednisone [Deltasone] 20 mg PO BID #40 tablet 12/15/17 Prednisone [Deltasone] 60 mg PO DAILY #15 tablet 12/15/17 Anemia: No Asthma: Yes Cancer: No Cardiac Disorders: No CVA: No COPD: No CHF: No DVT: No Dementia: No Diabetes: No GI Disorders: No Disorders: Yes (misscarriage) HTN: No Hypercholesterolemia: No Liver Disease: No Psychiatric Problems: Yes (ANXIETY/depression) Seizures: No Thyroid Disease: No - Surgical History Orthopedic Surgery: Yes (left ankle) - Reproductive History (#): 2 Para: 2 Cervical CA: No Dysfunctional Uterine Bleeding: No Ectopic : No Endometrial CA: No Polycystic Ovaries: No Therapeutic (s) & number: No Tubal Ligation: No Spontaneous : 0 - Immunization History Td Vaccination: Yes TDAP Vaccination: Yes Immunization Up to Date: Yes - Suicide/Smoking/Psychosocial Hx Smoking Status: No Smoking History: Never smoked Have you smoked in the past 12 months: No Number of Cigarettes Smoked Daily: 5 'Breaking Loose' booklet given: 03/15/17 Hx Alcohol Use: No Drug/Substance Use Hx: No Substance Use Type: None Hx Substance Use Treatment: No Review of Systems - Review of Systems Able to Perform ROS?: Yes Is the patient limited Uzbek proficient: No Constitutional: No: Symptoms Reported HEENTM: Yes: Symptoms Reported *Physical Exam - Vital Signs Last Vital Signs Temp Pulse Resp BP Pulse Ox 99.2 F 104 H 18 112/68 100 12/15/17 17:02 12/15/17 17:02 12/15/17 17:02 12/15/17 17:02 12/15/17 17:02 - Physical Exam General Appearance: Yes: Nourished, Appropriately Dressed, Obese HEENT: positive: EOMI, YVON, Other (left eyelid unable to fully close , unable to raise left eyeborw, decreased pinprick sensation left cheek, left ear with wick inplace discharge present ) Neck: positive: Supple. 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 Prednisone [Deltasone] 60 mg PO DAILY #15 tablet Prednisone [Deltasone] 20 mg PO BID #40 tablet - Referrals Referrals: Nedra Hernandez MD [Primary Care Provider] - Parvin Merchant MD [Staff Physician] - - Patient Instructions Additional Instructions: take the medication as directed take the prednisone 60mg daily for 5 days FIRST then take the prednisone 20mg twice a day for 10 days take the antivirals now follow with your primary care doctor in 2-3 days for follow up and the neurologist for follow up - Post Discharge Activity
== END 2017-12-15 17:36 | disposition home or self-care (01) ==
LOC: JER 17:00 → JERFT 17:00
DX: G51.0 Bell's palsy (principal); H92.02 Otalgia, left ear
CPT/HCPCS: 99281-25

== ENCOUNTER 2018-03-03 16:43 | Emergency (ER) | payer OTHER ==
--- NOTE | 2018-03-03 17:40 | PDOC ---
Rapid Medical Evaluation Time Seen by Provider: 03/03/18 17:38 Medical Evaluation: Allergies Allergy/AdvReac Type Severity Reaction Status Date / Time mushroom Allergy Severe Verified 03/03/18 17:38 Sulfa (Sulfonamide Allergy Intermediate Rash Verified 03/03/18 17:38 Antibiotics) [Sulfa(Sulfonamide Antibiotics)] I have performed a brief in-person evaluation of this patient. The patient presents with a chief complaint of: abdominal pain since this morning. 10 weeks . no vaginal bleeding Pertinent physical exam findings: none I have ordered the following: UA/culture, beta, labs The patient will proceed to the ED for further evaluation. Discharge Disposition - Diagnosis Abdominal pain complicating - Referrals - Patient Instructions - Post Discharge Activity
[2018-03-03 17:41] VITALS: BP 108/60; PULSE 98; TEMP 98.5; BMI 47.8
[2018-03-03 18:06] LABS: BASO % 0.5 % (0-2.0); EOS % 3.8 % (0-4.5); HEMATOCRIT 34.9 % (32.4-45.2); HEMOGLOBIN 12.1 GM/dL (10.7-15.3); LYMPH % 25.6 % (8-40); MCH 25.8 pg (25.7-33.7); MCHC 34.7 g/dl (32.0-36.0); MEAN CELL VOLUME 74.1 fl (80-96); MEAN PLT VOLUME 8.1 fl (7.5-11.1); MONO % 5.7 % (3.8-10.2); NEUT % 64.4 % (42.8-82.8); PLATELET COUNT 308 K/MM3 (134-434); RBC 4.71 M/mm3 (3.60-5.2); RDW 16.8 % (11.6-15.6); WHITE BLOOD COUNT 8.7 K/mm3 (4.0-10.0)
[2018-03-03 18:12] LABS: URINE APPEARANCE CLEAR; URINE BILIRUBIN NEGATIVE (<2.0 mg/dL); URINE COLOR LTYELLOW; URINE GLUCOSE (UA) NEGATIVE (NEGATIVE); URINE KETONE NEGATIVE (NEGATIVE); URINE LEUK ESTERASE NEGATIVE (NEGATIVE); URINE NITRITE NEGATIVE (NEGATIVE); URINE PROTEIN NEGATIVE (NEGATIVE); URINE UROBILINOGEN NEGATIVE mg/dL (0.2-1.0)
--- NOTE | 2018-03-03 18:19 | PDOC ---
History of Present Illness - General Chief Complaint: Pain, Acute Stated Complaint: HEMMORHAGE Time Seen by Provider: 03/03/18 17:38 - History of Present Illness Initial Comments: 03/03/18 18:12 The patient is a 27 year old female with a PMH of asthma, anxiety, , 10 weeks , that presented to ED complaining of LLQ pain that started this morning. It is 10/10, intermittent, no alleviating/aggravating factors, no radiation, no vaginal bleeding or discharge. She is complaining of nausea that is present since the beginning of her . Denies vomiting, fever, chills , dysuria, diarrhea, constipation. She had US in her OBGYN office (Dr Chester) and was told that has ovarian hemorrhagic cyst on left side. The patient would like to avoid taking pain medications Past History - Past Medical History Allergies/Adverse Reactions: Allergies Allergy/AdvReac Type Severity Reaction Status Date / Time mushroom Allergy Severe Verified 03/03/18 17:38 Sulfa (Sulfonamide Allergy Intermediate Rash Verified 03/03/18 17:38 Antibiotics) [Sulfa(Sulfonamide Antibiotics)] Home Medications: Ambulatory Orders Fluticasone Propionate [Flovent Diskus] 50 mcg IH PRN PRN 03/03/18 105/Iron/Folic AC/Dha [Prena1 True Combo Pack] 1 each PO DAILY Anemia: No Asthma: Yes Cancer: No Cardiac Disorders: No CVA: No COPD: No CHF: No DVT: No Dementia: No Diabetes: No GI Disorders: No Disorders: Yes (misscarriage) HTN: No Hypercholesterolemia: No Liver Disease: No Psychiatric Problems: Yes (ANXIETY/depression) Seizures: No Thyroid Disease: No - Surgical History Orthopedic Surgery: Yes (left ankle) - Reproductive History (#): 2 Para: 2 Cervical CA: No Dysfunctional Uterine Bleeding: No Ectopic : No Endometrial CA: No Polycystic Ovaries: No Therapeutic (s) & number: No Tubal Ligation: No Spontaneous : 0 - Immunization History Td Vaccination: Yes TDAP Vaccination: Yes Immunization Up to Date: Yes - Suicide/Smoking/Psychosocial Hx Smoking Status: No Smoking History: Never smoked Have you smoked in the past 12 months: No Number of Cigarettes Smoked Daily: 5 'Breaking Loose' booklet given: 03/15/17 Hx Alcohol Use: No Drug/Substance Use Hx: No Substance Use Type: None Hx Substance Use Treatment: No Review of Systems - Review of Systems Able to Perform ROS?: Yes Is the patient limited Libyan proficient: Yes Constitutional: No: Symptoms Reported HEENTM: No: Symptoms Reported Respiratory: No: Symptoms reported Cardiac (ROS): No: Symptoms Reported ABD/GI: Yes: Symptoms Reported, See HPI, Nausea. No: Constipated, Diarrhea, Vomiting : No: Symptoms Reported, Dysuria, Discharge Musculoskeletal: No: Symptoms Reported Neurological: No: Symptoms reported *Physical Exam - Vital Signs Last Vital Signs Temp Pulse Resp BP Pulse Ox 98.5 F 98 H 18 108/60 99 03/03/18 17:39 03/03/18 17:39 03/03/18 17:39 03/03/18 17:39 03/03/18 17:39 - Physical Exam General Appearance: Yes: Appropriately Dressed, Obese HEENT: negative: EOMI, YVON Respiratory/Chest: positive: Lungs Clear, Normal Breath Sounds. negative: Crackles, Rales, Rhonchi, Wheezing Cardiovascular: positive: Regular Rhythm, Regular Rate, S1, S2. negative: Murmur Female Pelvic Exam: positive: normal external exam, cervical os closed, normal adnexa, adnexal tenderness (left side). negative: vaginal bleeding Gastrointestinal/Abdominal: positive: Normal Bowel Sounds, Tender (to palpation in LLQ), Soft, Guarding (LLQ). negative: Distended Moderate Sedation - Procedure Monitoring Vital Signs: Procedure Monitoring Vital Signs Temperature 98.5 F 03/03/18 17:39 Pulse Rate 98 H 03/03/18 17:39 Respiratory Rate 18 03/03/18 17:39 Blood Pressure 108/60 03/03/18 17:39 O2 Sat by Pulse Oximetry (%) 99 03/03/18 17:39 ED Treatment Course - LABORATORY CBC & Chemistry Diagram: 03/03/18 17:53 03/03/18 17:53 - RADIOLOGY Radiology Studies Ordered: Category Date Time Status TRANSVAGINAL US PREG [US] Stat Ultrasound 03/03/18 18:10 Ordered Medical Decision Making - Medical Decision Making 03/03/18 18:23 27 year old female 10 weeks that presents complaining of abdominal pain. Differential diagnosis includes round ligament pain, ruptured ovarian cyst , ovarian torsion, miscarriage, . We ordered CBC, CMP, UA, urine culture and US. 03/03/18 21:08 Labs came back normal, US consistent with 10 week . The patient was discharged home with recommendation to follow up with her OBGYN next week. *DC/Admit/Observation/Transfer Diagnosis at time of Disposition: Abdominal pain complicating , Ovarian cyst - Discharge Dispostion Disposition: HOME Condition at time of disposition: Stable - Referrals Referrals: Tracy Chester DO [Primary Care Provider] - - Patient Instructions Printed Discharge Instructions: DI for Ovarian Cyst Additional Instructions: Follow up with Dr. Chester within 1 week You may take tylenol for your pain. You can take one to two 500mg tablets every 6 hours. Do not exceed eight 500mg tablets per day. Return to the emergency department if you have any new, worsening or concerning symptoms such as severe or uncontrolled pain - Post Discharge Activity
[2018-03-03 19:00] LABS: ALBUMIN 3.3 g/dl (3.4-5.0); ALK PHOS 75 U/L (45-117); ANION GAP 8 MMOL/L (8-16); BILIRUBIN,TOTAL 0.1 mg/dL (0.2-1); BLOOD UREA NITROGEN 9 mg/dL (7-18); CALCIUM 8.7 mg/dL (8.5-10.1); CHLORIDE 104 mmol/L (98-107); CO2 25 mmol/L (21-32); CREATININE 0.7 mg/dL (0.55-1.3); GLUCOSE,RANDOM 77 mg/dL (74-106); POTASSIUM 3.9 mmol/L (3.5-5.1); SGOT/AST 12 U/L (15-37); SGPT/ALT 17 U/L (13-61); SODIUM 137 mmol/L (136-145); TOT PROT 7.9 g/dl (6.4-8.2)
--- NOTE | 2018-03-03 20:39 | PDOC ---
Attending Attestation - Resident Resident Name: AlcidesMaite - ED Attending Attestation I have performed the following: I have examined & evaluated the patient, The case was reviewed & discussed with the resident, I agree w/resident's findings & plan, Exceptions are as noted - HPI HPI: 03/03/18 20:51 The patient is a 27 year old female, with a significant past medical history of asthma, anxiety, , currently 10 weeks , who presents to the ED complaining of LLQ abdominal pain and nausea since this morning. She describes her pain as localized in the left lower quadrant, rating it a 5/10 in severity. Pain is intermittent in nature, dull, without radiation or modifying factors. She denies any kind of vaginal bleeding or discharge. She notes that the nausea has been persistent throughout her . She reports that an ultrasound at her ACUPUNCTURIST office showed an ovarian cyst on the left side. The patient denies chest pain, shortness of breath, headache and dizziness. Denies fever, chills, vomiting, diarrhea or constipation. Denies dysuria, frequency, urgency and hematuria. Allergies: Mushroom, Sulfa Past surgical history: Left ankle surgery Social History: No alcohol, tobacco or drug use reported - Physicial Exam PE: 03/03/18 20:53 GENERAL: Awake, alert, and fully oriented, in no acute distress EYES: PERRLA, EOMI, sclera anicteric, conjunctiva clear ENT: Nares patent, oropharynx clear without exudates. Moist mucosa NECK: Normal ROM, supple LUNGS: Breath sounds equal, clear to auscultation bilaterally. No wheezes, and no crackles HEART: Regular rate and rhythm, normal S1 and S2, no murmurs, rubs or gallops ABDOMEN: Soft, nontender, normoactive bowel sounds. No guarding, no rebound. No masses PELVIC: normal ext genitalia, no blood or DC in the vault, cervix closed, no CMT , no R adnexal ttp, +L adnexal ttp, no masses EXTREMITIES: Normal range of motion, no edema. No erythema, or tenderness NEUROLOGICAL: Normal speech, cranial nerves intact, equal strength and sensation b/l, normal gait SKIN: Warm, Dry, normal turgor, no rashes or lesions noted. - Medical Decision Making 03/03/18 20:54 27yo F currently 10 weeks presents to the ED with LLQ pain, found to have 2.3 cm L sided ovarian cyst, viable intrauterine preg 10+4, small SC bleed. Ovarian cyst likely cause of pain. No abd ttp, fevers, n/v, large leukocytosis and thus unlikely diverticulitis. Pt feels well. Tolerating PO. REquested we call Dr. Chester, Dr. Cherry is covering, case was discussed, agrees to have pt f/u as an outpt. PT clinically well appearing, requests DC home I discussed the physical exam findings, ancillary test results and final diagnoses with the patient. I answered all of the patient's questions. The patient was satisfied with the care received and felt comfortable with the discharge plan and treatment plan. The patient will call their primary care physician within 24 hours to arrange follow-up and will return to the Emergency Department with any new, persistent or worsening symptoms. *DC/Admit/Observation/Transfer Diagnosis at time of Disposition: Abdominal pain complicating , Ovarian cyst - Discharge Dispostion Disposition: HOME Condition at time of disposition: Stable Decision to Admit order: No - Referrals Referrals: Tracy Chester DO [Primary Care Provider] - - Patient Instructions Printed Discharge Instructions: DI for Ovarian Cyst Additional Instructions: Follow up with Dr. Chester within 1 week You may take tylenol for your pain. You can take one to two 500mg tablets every 6 hours. Do not exceed eight 500mg tablets per day. Return to the emergency department if you have any new, worsening or concerning symptoms such as severe or uncontrolled pain - Post Discharge Activity - Attestations Physician Attestion: 03/03/18 20:48 I, Dr. Facundo Lopez MD, attest that this document has been prepared under my direction and personally reviewed by me in its entirety. I further attest, that it accurately reflects all work, treatment, procedures and medical decision -making performed by me.
== END 2018-03-03 21:48 | disposition home or self-care (01) ==
LOC: SUPCPDRO 16:43 → JER 16:43
DX: O26.891 Other specified pregnancy related conditions, first trimester (principal); O34.81 Maternal care for other abnormalities of pelvic organs, first trimester; N83.202 Unspecified ovarian cyst, left side; Z3A.10 10 weeks gestation of pregnancy
CPT/HCPCS: 36415; 76801-TC; 80053; 81003; 84702; 85025; 87086; 99283-25

== ENCOUNTER 2018-04-09 01:40 | Emergency (ER) | payer OTHER ==
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
[2018-04-09 02:43] VITALS: BP 113/54; PULSE 96; TEMP 98.3; BMI 47.2
[2018-04-09] MEDS ORDERED: ACETAMINOPHEN 500 MG TABLET (FP) PO ONE (03:10)
[2018-04-09] MEDS ORDERED: ACETAMINOPHEN 325 MG TABLET (FP) ONE (03:15)
== END 2018-04-09 03:37 | disposition home or self-care (01) ==
LOC: JER 01:40
DX: O99.89 Other specified diseases and conditions complicating pregnancy, childbirth and the puerperium (principal); S39.012A Strain of muscle, fascia and tendon of lower back, initial encounter; Z3A.15 15 weeks gestation of pregnancy; V49.59XA Passenger injured in collision with other motor vehicles in traffic accident, initial encounter; Y92.414 Local residential or business street as the place of occurrence of the external cause; Y93.89 Activity, other specified; Y99.8 Other external cause status
CPT/HCPCS: 99281-25

== ENCOUNTER 2018-09-17 09:00 | Inpatient (IN) | payer OTHER ==
[2018-09-17 10:03] VITALS: BMI 48.9
[2018-09-17 10:09] LABS: BASO % 0.3 % (0-2.0); EOS % 0.7 % (0-4.5); HEMATOCRIT 33.6 % (32.4-45.2); HEMOGLOBIN 11.3 GM/dL (10.7-15.3); LYMPH % 20.5 % (8-40); MCH 25.3 pg (25.7-33.7); MCHC 33.7 g/dl (32.0-36.0); MEAN CELL VOLUME 74.9 fl (80-96); MEAN PLT VOLUME 8.3 fl (7.5-11.1); MONO % 4.7 % (3.8-10.2); NEUT % 73.8 % (42.8-82.8); PLATELET COUNT 316 K/MM3 (134-434); RBC 4.48 M/mm3 (3.60-5.2); RDW 14.7 % (11.6-15.6); WHITE BLOOD COUNT 9.4 K/mm3 (4.0-10.0)
[2018-09-17] MEDS ORDERED: ELECTROLYTE-148 SOLN 1,000 ML IV ONE (10:15)
[2018-09-17] MEDS ORDERED: ELECTROLYTE-148 SOLN 1,000 ML IV SCH (10:15)
[2018-09-17] MEDS ORDERED: CITRIC ACID/SODIUM CITRATE 30 ML UNIT-DOSE CUP PO ONE (10:15)
[2018-09-17] MEDS ORDERED: morphine SULFATE/PF 0.5 MG/ML (2cc Syringe - QUVA) ONE (10:17)
[2018-09-17] MEDS ORDERED: PROPOFOL 20 ML ONE ×2 (10:18)
[2018-09-17 10:22] LABS: INR 0.95 (0.83-1.09); PROTHROMBIN TIME (PATIENT) 11.2 SEC (9.7-13.0)
--- NOTE | 2018-09-17 10:22 | HP ---
Past Medical History - Admission History of Present Illness: 27 y/o P2 female here in active labor/SROM. complicated by unexplained abdominal pain throughout as well as obesity. No other issues. Desires c section and tubal sterilization. 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 rx albuterol inhaler) Gastrointestinal: Yes: Constipation ...: 4 ...Para: 2 ...Term: 2 ...: 0 ...Spon : 1 ...Induced : 0 ...Multiple Gestation: 0 ...EDC by [facility]: 09/29/18 Heme/Onc: Yes: Anemia Infectious Disease: Yes: Other (herpes on pap--taking valtrex 1 gram po daily, she discontinued on her own) - Past Surgical History Past Surgical History: Yes: None Hx Myomectomy: No Hx Transabdominal Cerclage: No - Smoking History Smoking history: Never smoked Have you smoked in the past 12 months: No Aproximately how many cigarettes per day: 5 - Alcohol/Substance Use Hx Alcohol Use: No History of Substance Use: reports: None - Social History ADL: Independent Home Medications - Allergies Allergies/Adverse Reactions: Allergies Allergy/AdvReac Type Severity Reaction Status Date / Time mushroom Allergy Severe Verified 08/26/18 10:15 Sulfa (Sulfonamide Allergy Intermediate Rash Verified 08/26/18 10:15 Antibiotics) [Sulfa(Sulfonamide Antibiotics)] - Home Medications Home Medications: Ambulatory Orders 105/Iron/Folic AC/Dha [Prena1 True Combo Pack] 1 each PO DAILY Albuterol Sulfate Inhaler - [Ventolin Hfa Inhaler -] 1 - 2 inh PO Q4H 08/26/18 Physical Exam - Maternity Vital Signs: Vital Signs Temperature 97.5 F L 09/17/18 09:15 Pulse Rate 69 09/17/18 09:15 Respiratory Rate 22 H 09/17/18 09:15 Blood Pressure 123/73 09/17/18 09:15 O2 Sat by Pulse Oximetry (%) Constitutional: Yes: Well Nourished, Moderate Distress (due to labor pain/ contractions) HENT: Yes: Atraumatic, Normocephalic Neck: Yes: Supple - Abdominal Exam/OB Number of Fetuses: Single Presentation: Vertex Regularity: Regular Intensity: Strong Category: II Decelerations: Variable - Vaginal Exam/OB Dilatation (cm): 6 Effacement (%): 100 Presentation: Vertex/Position Station: -2 - Physical Exam Psychiatric: Yes: Alert, Oriented Assessment/Plan 27 y/o P2 with SIUP at 38.1 weeks desires elective c section and tubal sterilization pt also with recurrent variable decelerations, not yet fully dilated/ready deliver for c section R/B/A discussed, informed consent signed, risks including bleeding/infection/ damage to surrounding structures discussed, pt aware, will proceed anesthesia and nursery aware
[2018-09-17 10:25] LABS: ACTIVATED PTT 31.1 SECONDS (25.2-36.5)
[2018-09-17 10:37] LABS: BLOOD UREA NITROGEN 9.8 mg/dL (7-18); CALCIUM 8.6 mg/dL (8.5-10.1); CREATININE 0.6 mg/dL (0.55-1.3)
[2018-09-17] MEDS ORDERED: OXYTOCIN 20 UNITS in 0.9% NS 20 UNIT/1,000 ML INFUS.BAG IV ONE (10:37)
--- NOTE | 2018-09-17 10:47 | PN ---
Ante-Partal Exam - Subjective Subjective: Late entry for 1030 Upon prepping patient and OR for c section, pt expressed desire to push examination revealed fully dilated cervix Vital Signs: Vital Signs Temperature 97.5 F L 09/17/18 09:15 Pulse Rate 69 09/17/18 09:15 Respiratory Rate 22 H 09/17/18 09:15 Blood Pressure 123/73 09/17/18 09:15 O2 Sat by Pulse Oximetry (%) Bleeding: Yes Bleeding Description: Mild Headache: No Visual changes: No Right upper quadrant pain: No - Contractions Contractions: Yes Regularity: Regular Intensity: Strong - Exam during Labor Heart Rate: 120 Variability: Moderate Category: II Monitor Decelerations: Variable Exam: Vaginal Dilatation (cm): 10 Effacement (%): 100 Amniotic Membrane Status: Ruptured Presentation: Vertex Station: +1 - Assessment/Plan Assessment/Plan: Will begin pushing and plan for
--- NOTE | 2018-09-17 10:49 | PN ---
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
[2018-09-17] MEDS ORDERED: BISACODYL 10 MG SUPP.RECT RC PRN (10:50)
[2018-09-17] MEDS ORDERED: BENZOCAINE 28 GM HEMORRHOIDAL OINTMENT TP PRN (10:50)
[2018-09-17] MEDS ORDERED: METHYLERGONOVINE MALEATE 0.2 MG/1 ML AMP IM PRN (10:50)
[2018-09-17] MEDS ORDERED: BENZOCAINE 20% 57 GM BOTTLE TP PRN (10:50)
[2018-09-17] MEDS ORDERED: WITCH HAZEL 50% (TUCKS) 40 PAD/JAR PAD TP PRN (10:50)
[2018-09-17] MEDS ORDERED: TUBERCULIN PPD 5 TU/0.1ML SYRINGE (IN PATIENT USE ONLY) ID ONE (11:00)
[2018-09-17] MEDS ORDERED: OXYTOCIN 20 UNITS in 0.9% NS 20 UNIT/1,000 ML INFUS.BAG IV SCH (11:00)
[2018-09-17] MEDS: IBUPROFEN 600 MG TABLET (FP) PO PRN ×2 (12:46→17:50)
[2018-09-17] MEDS: ACETAMINOPHEN 325 MG TABLET (FP) PO PRN (17:50)
[2018-09-18] MEDS ORDERED: METHYLERGONOVINE MALEATE 0.2 MG TABLET (FP) PO SCH (01:00)
[2018-09-18] MEDS ORDERED: MISOPROSTOL 200 MCG TABLET PO ONE (01:15)
[2018-09-18] MEDS: ACETAMINOPHEN 325 MG TABLET (FP) PO PRN (01:44)
[2018-09-18] MEDS: IBUPROFEN 600 MG TABLET (FP) PO PRN (01:44)
[2018-09-18] MEDS: METHYLERGONOVINE MALEATE 0.2 MG TABLET (FP) PO SCH ×2 (05:05→11:00)
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
[2018-09-18 09:17] LABS: BASO % 0.2 % (0-2.0); EOS % 1.2 % (0-4.5); HEMOGLOBIN 8.9 GM/dL (10.7-15.3); LYMPH % 20.5 % (8-40); MCH 25.8 pg (25.7-33.7); MEAN PLT VOLUME 8.5 fl (7.5-11.1); MONO % 4.3 % (3.8-10.2); NEUT % 73.8 % (42.8-82.8); PLATELET COUNT 238 K/MM3 (134-434); RBC 3.43 M/mm3 (3.60-5.2); RDW 14.6 % (11.6-15.6); WHITE BLOOD COUNT 10.8 K/mm3 (4.0-10.0)
[2018-09-18] MEDS ORDERED: PRENATAL VITAMINS W/ FOLIC ACID TABLET (FP) PO SCH (10:00)
[2018-09-18 10:23] VITALS: BP 95/45; PULSE 83; TEMP 98.4
[2018-09-18 11:02] LABS: COCAINE, UR NEGATIVE ng/ml (CUTOFF=300); METHADONE, UR NEGATIVE ng/ml (CUTOFF=300); OPIATES, URI NEGATIVE ng/ml (CUTOFF=300); PHENCYCLIDINE,URINE NEGATIVE ng/ml (CUTOFF=25); URINE AMPHETAMINES NEGATIVE ng/ml (CUTOFF=500); URINE BARBITURATES NEGATIVE ng/ml (CUTOFF=200); URINE BENZODIAZEPINES NEGATIVE ng/ml (CUTOFF=200)
--- NOTE | 2018-09-18 12:48 | DS ---
Physical Exam-SPRING PRODUCTION SUPERVISOR Vital Signs: Vital Signs Temperature 98.4 F 09/18/18 10:00 Pulse Rate 83 09/18/18 10:00 Respiratory Rate 18 09/18/18 10:00 Blood Pressure 95/45 L 09/18/18 10:00 O2 Sat by Pulse Oximetry (%) 99 09/17/18 11:30 Constitutional: Yes: Well Nourished, No Distress, Calm HENT: Yes: Atraumatic Neck: Yes: Supple Cardiovascular: Yes: Regular Rate and Rhythm Respiratory: Yes: WNL Gastrointestinal: Yes: Soft ....Post : Yes: Uterus firm, Uterus non-tender, Slight lochia rubra Neurological: Yes: Alert, Oriented Psychiatric: Yes: Alert, Oriented Labs: CBC, BMP 09/18/18 08:27 09/17/18 09:45 Delivery - Delivery Vaginal Delivery: No Problems Type of Anesthesia: None Episiotomy/Laceration: None EBL (cc): 250 Delivery, Single - Stages of Labor Date 1st Stage Initiatied: 09/17/18 Time 1st Stage Initiated: 05:00 Date 2nd Stage Initiated: 09/17/18 Time 2nd Stage Initiated: 10:30 Date of Delivery: 09/17/18 Time of Delivery: 10:34 Time Placenta Delivered: 10:40 Placenta: Yes: Spontaneous - 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 On post day 1 the patient had an episode of heavy lochia with clotting, was examined by laborist community relations rep, received uterotonics and her bleeding subsequently improved. Later that morning the patient was examined and had scant bleeding. She was kept on oral methergine X 24 hours. She expressed desire to go home. After monitoring for approx 12 hours s/p bleeding episode pt was discharged home in stable condition with oral Iron and oral methergine. Condition: Good - Instructions Diet, Activity, Other Instructions: Physical activity Resume your normal everyday activity as tolerated no heavy lifting or exercise until seen by your surgeon. You may walk unlimited jonh of and climb stairs. You may resume driving the car when you feel safe and comfortable behind the wheel. No sexual activity as instructed. Wound care If you have a bandage, leave it on, and keep dry for 48-72 hours. After that time discard the outer bandage. If they are tapes on the skin under the out of bandage leave them in place. They will peel off in the next 7 to 10 days. Do Not Peel them off. You may shower the day after surgery. If there are tapes present on the skin, you may shower over them. Diet There are no dietary restrictions. Eat healthy, high-fiber foods. Drink 6 to 8 glasses of liquid each day. This will assist in keeping your bowels are regular. Pain management You may take Tylenol or acetaminophen or Ibuprofen (for example, Motrin, Advil etc.) from my pain prescription medication is ordered should be taken as prescribed for moderate to severe pain. Call MD for any of the following: Severe pain not relieved by medication Fever of 101 or higher Excessive bleeding or drainage on dressing Inability to urinate Disposition: HOME - Home Medications Comprehensive Discharge Medication List: Ambulatory Orders Ferrous Sulfate [Feosol] 325 mg PO BID #60 tablet 09/18/18 Ibuprofen [Motrin -] 600 mg PO QID PRN #28 tablet 09/18/18 Methylergonovine Maleate [Methergine] 0.2 mg PO Q4H 1 Days #2 tablet 09/18/18
[2018-09-18] MEDS ORDERED: SENNOSIDES/DOCUSATE COMBO (SENNA PLUS) TABLET (UD) PO PRN (22:00)
--- NOTE | 2018-09-20 11:22 | PN ---
DATE OF OPERATION: 09/18/2018 DATE OF DICTATION: 09/18/2018 I was called to the patient on September 18, 2018, at 0015 hours because of postpartal hemorrhage. Patient delivered vaginally, rather rapidly, a little bit over 12 hours ago. Uneventful delivery, and complete placenta. Delivered spontaneously. The patient started bleeding and was not responding to massage. Upon arrival, I evaluated the patient. Uterus was relatively well contracted but that was another 300 mL of clots in the vagina. Patient has already passed at least 500 mL in blood clots. I started massage and emptied vagina. With some effort, and fundal pressure, I managed to dislodge what looked like a from the uterus. In the meantime, IV was started and Pitocin was running fast. Patient was given 0.2 mg of Methergine IM. After about 15 minutes of observation and vigorous fundal massage patient appears to be stable. Uterus is very well contracted. She was examined vaginally again, and there was no clot in the vagina. Bleeding is now minimal, compatible with normal early . Sonogram was called to assess uterine cavity and make sure there is no clot or tissue left. Discussed with Dr. Chester who recommended Cytotec, 600 mcg was given. Timeout. At 0115 hours, patient was stable with normal vital signs. She complains of cramping. Uterus is firm and bleeding is minimal. We will continue oxytocin drip and Methergine series. IMPRESSION: hemorrhage. PLAN: It was handled with uterine massage and digital evacuation of the uterine cavity. Hassan was placed, IV restarted, and rapid infusion Pitocin given. Cytotec 600 mcg p.o. Close observation. CBC to be done in a couple of hours. If patient starts bleeding again, she may need an exploration under anesthesia with curettage. MD MARLA MAYER/[id number]
--- NOTE | 2018-09-21 15:45 | PATH ---
Surgical Pathology Report Patient Name: ASHLY DEL ROSARIO Med. Rec. 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 Specimen(s) Received MANUAL REMOVAL OF CLOT AND COTYLEDONS Clinical History PPH Manual removal of clot and cotyledons Final Diagnosis MANUAL REMOVAL OF CLOT AND COTYLEDONS: BLOOD CLOT (102 GRAM) AND FEW FRAGMENTS OF DECIDUAL TISSUE. Electronically Signed Darryl Burk M.D. Gross Description Received in formalin labeled with the patient's name and indicated on the requisition to be clot and cotyledons, is a 102 gram, 10.0 x 8.5 x 2.1 cm red-brown blood clot which is partially surfaced by randolph fibrinous tissue. Lime Hide Inspector sections are submitted in 8 cassettes. /09/19/2018 saudi/09/19/2018
== END 2018-09-18 14:25 | disposition home or self-care (01) | DRG 560 ==
LOC: JLDR 09:00 → J3W 12:00
PROVIDERS: ADMIT Obstetrics & Gynecology; ATTEND Obstetrics & Gynecology
PROC: 10E0XZZ Delivery of Products of Conception, External Approach (ICD-10-PCS; principal; 2018-09-17)
DX: O99.214 Obesity complicating childbirth (principal); E66.9 Obesity, unspecified; Z3A.38 38 weeks gestation of pregnancy; Z37.0 Single live birth; O72.1 Other immediate postpartum hemorrhage; Z68.42 Body mass index [BMI] 45.0-49.9, adult
CPT/HCPCS: 36415; 59409; 76856-TC; 80048; 80307; 85025; 85610; 85730; 86593; 86850; 86900; 86901

== ENCOUNTER 2019-12-21 04:49 | Day surgery (SDC) | payer OTHER ==
[2019-12-20 09:43] VITALS: BMI 47.8
--- NOTE | 2019-12-21 00:24 | HP ---
History & Physical Update - History History: No Change - Physical Physical: No Change - Assessment Assessment: No Change - Plan Plan: No Change (No change in HP)
--- OUTSIDE RECORDS SUMMARY | 2019-12-21 04:53 | XMS ---
:1990 [facility] Care Team Providers Name Role Phone [facility], MMV[facility]9 Unavailable Unavailable Re-disclosure Warning The records that you are about to access may contain information from federally- assisted alcohol or drug abuse programs. If such information is present, then the following federally mandated warning applies: This information has been disclosed to you from records protected by federal confidentiality rules (42 CFR part 2). The federal rules prohibit you from making any further disclosure of this information unless further disclosure is expressly permitted by the written consent of the person to whom it pertains or as otherwise permitted by 42 CFR part 2. A general authorization for the release of medical or other information is NOT sufficient for this purpose. The Federal rules restrict any use of the information to criminally investigate or prosecute any alcohol or drug abuse patient.The records that you are about to access may contain highly sensitive health information, the redisclosure of which is protected by Article 27-F of the [facility] Public Health law. If you continue you may haveaccess to information: Regarding HIV / AIDS; Provided by facilities licensed or operated by the [facility] Office of Mental Health; or Provided by the [facility] Office for People With Developmental Disabilities. If such information is present, then the following [facility] mandated warning applies: This information has been disclosed to you from confidential records which are protected by state law. State law prohibits you from making any further disclosure of this information without the specific written consent of the person to whom it pertains, or as otherwise permitted by law. Any unauthorized further disclosure in violation of state law may result in a fine or senior living sentence or both. A general authorization for the release of medical or other information is NOT sufficient authorization for further disclosure. Allergies and Adverse Reactions Type Description Substance Reaction Status Data Source(s ) Propensity to mushroom No known Anaphylaxis Active eCW3 ([facility] [place] adverse reactions allergies Health Care) (situation) Propensity to mushroom No known Anaphylaxis Active eCW3 ([facility] [place] adverse reactions allergies Health Care) (situation) Drug allergy Sulfur Sulfur rash Active eCW2 ([facility] [place] [employer]) Propensity to sulfa No known Anaphylaxis Active eCW3 ([facility] [place] adverse reactions allergies Health Care) (situation) Propensity to sulfa No known Anaphylaxis Active eCW3 ([facility] [place] adverse reactions allergies Health Care) (situation) Encounters Encounter Providers Location Date Indications Data Source(s ) Outpatient Attender: [id number] 05/16/2019 [facility] ([facility] on [facility] 01:16:33 PM Care Gopi tomas) EST Patient admitted. Outpatient [facility] 01/13/2019 12:00:00 eCW3 ([facility] A28 AM EDT - 01/13/2019 [facility]) 12:00:00 AM EDT (ROV) Regular Office [facility] 01/11/2019 12:00: 00 eCW3 ([facility] A28 AM EDT - [facility] 12[facility]00 [facility] 10[facility]2018 12:00:00 eCW2 [place] [place] [facility] [facility] [place] [employer] 01/07/2017 12:00:00 eCW2 ([facility] [place] AM EDT [facility] [place] [employer]) [facility] 2016 12:00:00 eCW2 ([facility] [place] AM EDT [facility] [place] [employer]) [facility] 10/22/2016 12:00:00 eCW2 ([facility] [place] AM [facility] [place] [employer]) [facility] 10/17/2016 12:00:00 eCW2 ([facility] [place] AM [facility] [place] [employer]) [facility] 10/05/2016 12:00:00 eCW2 ([facility] [place] AM ED[facility] [place] [employer]) [facility] 08/25/2016 12:00:00 eCW2 ([facility] [place] AM EDT [facility] [place] [employer]) [facility] 08/23/2016 12:00:00 eCW2 ([facility] [place] AM EDT [facility] [place] [employer]) [facility] 03/20/2016 12:00:00 eCW2 ([facility] [place] AM EST [facility] [place] [employer]) [facility] 12/05/2015 12:00:00 eCW2 ([facility] [place] AM EDT [facility] [place] [employer]) Immunizations Vaccine Date Status Description Data Source(s) Nexplanon (FP) 10/20/2018 completed eCW2 ([facility]anned 05:48:00 PM EDT [facility] [place] [employer] rated) Lidocaine injection 10/20/2018 completed eCW2 (Pl anned (FP) 05:48:00 PM EDT [facility] [place] [employer] rated) Medications Medication Brand Start Product Dose Route Administrative Pharmacy [facility] Indications Reaction Description Data Name Date Form Instructions Instructions Source(s) Sumatriptan Imitre .0 active Imitrex 50 eCW3 50 MG Oral x 50 2018 {tabl MG ([place] Tablet MG 12:00: et_[place] [Imitrex] 00 AM _need Health Imitrex 50 EDT ed} Care) MG Vitamin D UNK .0 active Vitamin D e CW3 (Ergocalcif 2018 {caps (Ergocalcife ([place] chet) 33133 12:00: ule} rol) [address] [place] UNIT 00 AM UNIT Health EDT Care) Sumatriptan Imitre .0 active Imitrex 50 eCW3 50 MG Oral x 50 2018 {tabl MG ([place] Tablet MG 12:00: et_[place] [Imitrex] 00 AM _need Health Imitrex 50 EDT ed} Care) MG Vitamin D UNK 1.0 active Vitamin D e CW3 (Ergocalcif 2019 {caps (Ergocalcife ([place] chet) 31464 12:00: ule} rol) [address] [place] UNIT 00 AM UNIT Health EDT Care) Etonogestre Nexpla active as direct ed eCW2 l 68 MG non 68 (Planned Drug MG [facility] Implant - [place] [Nexplanon] [place] [employer] 68 MG ed) Insurance Providers Payer name Policy type Policy ID Covered Covered democrat's Policy P ivis / Coverage democrat ID relationship to [place] Inf ormation type brandon [facility] MEDICAID [id number] SP [id number] [facility] MEDICAID [id number] SP [id number] [facility] MEDICAID [id number] SP [id number] SELF PAY INSURANCE Problems, Conditions, and Diagnoses Code Display Name Description Problem Type Effective Dates Data Source(s) M35.00 Sjogren''s Sjogren''s Problem 08/02/2019 eCW3 ([place] syndrome, with syndrome, with 12:00:00 AM EDT [facility] unspecified organ unspecified organ Care) involvement involvement M06.9 Rheumatoid Rheumatoid Problem 08/02/2019 eCW3 ([place] arthritis arthritis 12:00:00 AM [facility] involving involving Care) multiple sites, multiple sites, unspecified unspecified rheumatoid factor rheumatoid factor presence presence I73.00 Raynaud''s Raynaud''s Problem 08/02/2019 eCW3 ([place] disease without disease without 12:00:00 AM [facility] gangrene gangrene Care) G43.009 Migraine without Migraine without Problem 01/13/2019 eC W3 ([place] aura and without aura and without 12:00:00 AM E [facility] status status Care) migrainosus, not migrainosus, not intractable intractable E55.9 Vitamin D Vitamin D Problem 01/13/2019 eCW3 ([place] deficiency deficiency 12:00:00 AM [facility] Care) 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/2019 eCW3 ([place] 12:00:00 AM [facility] Care) D50.8 Other iron Other iron Problem 01/11/2019 eCW3 ([place] deficiency anemia deficiency anemia 12:00:00 AM [facility]) Z33.1 Problem eCW3 ([facility]) Unknown Problems Unknown Problems Problem eC W2 ([facility] [place] [employer]) Surgeries/Procedures Procedure Description Date Indications Data Source(s) INSERT DRUG IMPLANT 10/20/2018 eCW2 (Pl anned DEVICE 12:00:00 AM EDT [facility] [place] [employer] [facility]) Injection, lidocaine hcl 10/20/2018 eCW 2 (Planned for intravenous 12:00:00 AM EDT [facility] [place] infusion, 10 mg [place] In[employer] rporated) Etonogestrel 10/20/2018 eCW2 (Planned (contraceptive) implant 12:00:00 AM EDT [facility] [place] system, including [place] [employer]) implant and supplies Social History Code Duration Value Status Description Data Source(s ) Smoking 08/03/2019 Current Smoker completed Current Smoker eCW3 ( [place] 12:00:00 AM [facility]) Smoking 08/03/2019 Current Smoker completed Current Smoker eCW3 ( [place] 12:00:00 AM [facility]) Current Smoker completed Current Smoker eCW3 ( [facility]) Current Smoker completed Current Smoker eCW3 ( [facility]) Smoking Unknown if ever completed Unknown if ever eCW2 (Planned smoked smoked [facility] [place] [employer]) Vital Signs ID Date Data Source UNK Name Value Range Interpretation Code Description Data Source(s) Diastolic blood 80 mm[Hg] 80 mm[Hg] eCW3 ([facility]) Systolic blood 116 mm[Hg] 116 mm[Hg] eCW3 ([facility]) Body temperature 98.1 [degF] 98.1 [degF] eCW3 ( [facility]) Body weight 276 [lb_av] 276 [lb_av] eCW3 ([facility]) Diastolic blood 72 mm[Hg] 72 mm[Hg] eCW3 ([facility]) Systolic blood 109 mm[Hg] 109 mm[Hg] eCW3 ([facility]) Body temperature 98.5 [degF] 98.5 [degF] eCW3 ( [facility]) Body weight 269 [lb_av] 269 [lb_av] eCW3 ([facility]) Diastolic blood 77 mm[Hg] 77 mm[Hg] eCW2 ([facility] n[facility] pressure [facility] [employer]) Systolic blood 124 mm[Hg] 124 mm[Hg] eCW2 (Plan [facility]a pressure [facility]) Body mass index 49.50 kg/m2 49.50 kg/m2 eCW2 (P lanned (BMI) [Ratio] [facility] [place] [facility]) Body weight 262 [lb_av] 262 [lb_av] eCW2 (Plann ed [facility]asured [facility] - [employer]) Body height 61 [in_us] 61 [in_us] eCW2 ([facility] [employer] [facility]) Patient Treatment Plan of Care Planned Activity Planned Date Details Description Data Source (s) Etonogestrel 68 MG Drug eCW2 ([facility] [Nexplanon] - [employer])
[2019-12-21] MEDS ORDERED: PHENAZOPYRIDINE HCL 100 MG TABLET (FP) ONE (06:54)
[2019-12-21] MEDS ORDERED: ceFAZolin SODIUM 1 GM VIAL ONE ×2 (06:54→08:06)
[2019-12-21] MEDS ORDERED: CEFAZOLIN 2 GM in DEXTROSE 5%-WATER - 100 ML IVPB ONE (07:00)
[2019-12-21] MEDS ORDERED: PHENAZOPYRIDINE HCL 100 MG TABLET (FP) PO ONE (07:00)
[2019-12-21] MEDS ORDERED: MIDAZOLAM HCL 2 MG/2 ML SINGLE DOSE VIAL ONE ×4 (07:10→07:22)
[2019-12-21] MEDS ORDERED: ROPIVACAINE HCL 0.5% 30ML VIAL ONE (07:14)
[2019-12-21] MEDS ORDERED: ROCURONIUM BROMIDE 50 MG/5 ML SYRINGE ONE ×2 (07:20→08:51)
[2019-12-21] MEDS ORDERED: DEXAMETHASONE SOD PHOSPHATE 4 MG/1 ML VIAL ONE (07:20)
[2019-12-21] MEDS ORDERED: fentaNYL CITRATE 250 MCG/5 ML VIAL ONE (07:21)
[2019-12-21] MEDS ORDERED: SUCCINYLCHOLINE CHLORIDE 200 MG/10 ML SYRINGE ONE (07:22)
[2019-12-21] MEDS ORDERED: PROPOFOL 20 ML ONE (07:22)
[2019-12-21] MEDS ORDERED: ceFAZolin SODIUM 1 GM VIAL IVPB ONE (08:00)
[2019-12-21] MEDS ORDERED: NEOSTIGMINE METHYLSULFATE 0.5 MG/ML - 10 ML MDV ONE (09:14)
[2019-12-21] MEDS ORDERED: GLYCOPYRROLATE 0.2 MG/1 ML VIAL ONE (09:15)
[2019-12-21] MEDS ORDERED: KETOROLAC TROMETHAMINE 30 MG/1 ML VIAL ONE (09:16)
[2019-12-21] MEDS ORDERED: ONDANSETRON 4 MG/2 ML VIAL IVPUSH PRN ×2 (09:45→10:14)
[2019-12-21] MEDS ORDERED: oxyCODONE HCL 5 MG TABLET PO PRN ×2 (10:14)
[2019-12-21] MEDS ORDERED: DOCUSATE SODIUM 100 MG CAPSULE (FP) PO PRN (10:14)
[2019-12-21] MEDS ORDERED: IBUPROFEN 800 MG/8 ML IJ IVPB PRN (10:14)
[2019-12-21] MEDS ORDERED: BISACODYL 5 MG TABLET.DR (FP) PO PRN (10:14)
--- NOTE | 2019-12-21 10:25 | OP ---
Operative Note - Note: Operative Date: 12/21/19 Pre-Operative Diagnosis: Adenomyosis Operation: Robotic laproscopic total hysterectomy, bilateral salpingectomy Post-Operative Diagnosis: Same as Pre-op Surgeon: Susan Cherry Bender Hand: Willi Peña Anesthesiologist/COURT CRIER: Crystal Garcia Anesthesia: General Estimated Blood Loss (mls): 25 Operative Report Dictated: Yes
--- NOTE | 2019-12-21 10:27 | SURG ---
Surgery Mail Clerk Bills Note Mail Clerk Bills: Willi Peña PA-C Date of Service: 12/21/19 Diagnosis: Adenomyosis Procedure: Robotic laproscopic total hysterectomy, bilateral salpingectomy I was present for the entirety of the operative procedure. For further detail, please refer to operative report. Visit type - Case Type Case Type: Scheduled - Emergency Emergency Visit: No - New patient This patient is new to me today: Yes Date on this admission: 12/21/19 - Critical Care Critical Care patient: No
[2019-12-21] MEDS: LACTATED RINGERS SOLUTION 1,000 ML IV SCH (17:35)
[2019-12-21] MEDS: CEFAZOLIN 1 GM/D5W 1 GM/50 ML BAG IVPB SCH (17:36)
[2019-12-21 19:24] LABS: HEMATOCRIT 34.7 % (32.4-45.2); HEMOGLOBIN 11.4 GM/dL (10.7-15.3); MCH 24.9 pg (25.7-33.7); MCHC 32.7 g/dl (32.0-36.0); MEAN CELL VOLUME 76.1 fl (80-96); MEAN PLT VOLUME 8.3 fl (7.5-11.1); PLATELET COUNT 306 K/MM3 (134-434); RBC 4.56 M/mm3 (3.60-5.2); WHITE BLOOD COUNT 11.3 K/mm3 (4.0-10.0)
[2019-12-21 19:47] LABS: BLOOD UREA NITROGEN 12.8 mg/dL (7-18); CALCIUM 8.5 mg/dL (8.5-10.1); CREATININE 0.9 mg/dL (0.55-1.3); POTASSIUM 4.5 mmol/L (3.5-5.1)
[2019-12-21] MEDS: SIMETHICONE 80 MG TAB.CHEW (FP) PO PRN (20:53)
[2019-12-21] MEDS: ACETAMINOPHEN 325 MG TABLET (FP) PO PRN (20:54)
[2019-12-22] MEDS: CEFAZOLIN 1 GM/D5W 1 GM/50 ML BAG IVPB SCH ×2 (01:24→09:27)
[2019-12-22 08:36] LABS: HEMATOCRIT 32.4 % (32.4-45.2); HEMOGLOBIN 10.6 GM/dL (10.7-15.3); MCH 24.7 pg (25.7-33.7); MCHC 32.6 g/dl (32.0-36.0); MEAN CELL VOLUME 75.9 fl (80-96); MEAN PLT VOLUME 8.4 fl (7.5-11.1); PLATELET COUNT 283 K/MM3 (134-434); RBC 4.26 M/mm3 (3.60-5.2); RDW 16.8 % (11.6-15.6); WHITE BLOOD COUNT 11.4 K/mm3 (4.0-10.0)
[2019-12-22 09:03] LABS: BLOOD UREA NITROGEN 10.7 mg/dL (7-18); CALCIUM 8.8 mg/dL (8.5-10.1); CREATININE 0.7 mg/dL (0.55-1.3); POTASSIUM 4.1 mmol/L (3.5-5.1)
--- NOTE | 2019-12-22 09:53 | PN ---
Progress Note (short form) - Note Progress Note: 29yo F s/p robotic hysterectomy POD 1. Pt appears to be doing well. Pt ambulating, tolerating PO, and urinating well. Pt states abd pain is well controlled. Pt denies fever, chills, n/v, diarrhea. Last Vital Signs Temp Pulse Resp BP Pulse Ox 98.4 F 57 L 20 101/52 L 97 12/22/19 05:53 12/22/19 05:53 12/22/19 05:53 12/22/19 05:53 12/21/19 13:50 CBC, BMP 12/22/19 08:00 12/22/19 08:00 PE: Gen: A&O X3 Resp: breathing comfortably Abd: soft, nondistended, mild diffuse tenderness. Incisions clean with no erythema. Ext: No edema. Problem List - Problems (1) S/P hysterectomy Assessment/Plan: Plan -pt appears to be doing well, plan discharge home today -pt should follow up with Dr. Cherry next week Pt discussed with Dr. Cherry who agrees with plan Code(s): Z90.710 - ACQUIRED ABSENCE OF BOTH CERVIX AND UTERUS
[2019-12-22] MEDS ORDERED: FERROUS SO4 325 MG TABLET (FP) PO SCH (10:00)
[2019-12-22] MEDS ORDERED: ENOXAPARIN NA (PORCINE) 40 MG/0.4 ML DISP.SYRIN SQ SCH (10:00)
[2019-12-22] MEDS: LACTATED RINGERS SOLUTION 1,000 ML IV SCH (10:17)
[2019-12-22] MEDS: ACETAMINOPHEN 325 MG TABLET (FP) PO PRN (10:21)
[2019-12-22] MEDS: SIMETHICONE 80 MG TAB.CHEW (FP) PO PRN (10:22)
[2019-12-22 11:05] VITALS: BP 118/75; PULSE 72; TEMP 98.7
--- NOTE | 2019-12-24 12:53 | OP ---
DATE OF OPERATION: 12/21/2019 PREOPERATIVE DIAGNOSIS: Pelvic pain, adenomyosis and leiomyomatous uterus. OPERATION: Laparoscopic robotic hysterectomy. POSTOPERATIVE DIAGNOSIS: Pelvic pain, adenomyosis and leiomyomatous uterus. SURGEON: Darby Elliott MD CENTRAL SERVICES TECH: BARBARA Giron; MD martinez. ANESTHESIA: General. PROCEDURE IN DETAIL: Patient was taken to the operating room, placed in the dorsal lithotomy position, prepped and draped in the usual sterile fashion. Timeout was performed in accordance with hospital regulation. Speculum was placed in the vagina. Anterior lip of the cervix was grasped with single-tooth tenaculum. Cervix was then dilated to accommodate the uterine manipulator. The Hassan catheter was then inserted into the bladder. Attention was then drawn to the umbilicus where an 8 mm umbilical incision was made. Veress needle was inserted into the cavity. Approximately 3 to 4 L of CO2 were insufflated into the cavity. Robotic trocar was then inserted. Laparoscope and camera were attached. Visualization revealed uterus with adenomyosis and leiomyomatous uterus. Two trocars were placed on the left after scalpel about 10 mm apart. After scalpel was used to make incisions, 8-mm trocars were inserted on the left parallel and in the upper abdomen a 5-mm trocar AirSeal cannula was inserted in the upper abdomen on the left and 2 trocars were inserted on the right 10 cm apart under direct visualization. No injury to underlying viscera was done. The da Hardik robot was then side docked to the patient's bedside and trocars were then inserted onto the robot. Instruments were placed. The vessel sealer was inserted in the left No. 1, the camera in 2, Endo Kemar in 3 and tenaculum in 4. After all instruments had been placed, the attention was then drawn to the console where control of the console was then done. Tenaculum was then used to elevate the uterus to the right side. The uterine ovarian ligament was identified and coagulated and cut using the vessel sealer. Uterine arteries were identified on the left and clamped and cut. Vesicouterine reflection was then entered. The bladder was then bluntly dissected out of the operative field. Cardinal ligaments were identified and clamped down to the level of the vagina. The vagina was then entered using Endo Kemar. Same procedure was repeated on the right side. Uterine ovarian ligament was identified and clamped and cut. Uterine arteries were then identified, coagulated and clamped and cut. Cardinal ligaments were identified and clamped and cut down to the level of the vagina. Endo Kemar was then used to remove the cervix away from the vagina. The cervix/uterus was removed. Bilateral coagulation and cutting of the tubes was done and both left and right tubes were removed. Everything was removed. Ovaries remained and looked normal. The 2-0 V-Loc suture was then entered into the abdomen and da Hardik was then used to close the vagina in a running stitch using . After vagina had been closed and hemostasis was achieved, ureters identified and found to have peristalsis. All instruments were then removed. CO2 was removed from the abdomen. The incisions were then closed using 3-0 Vicryl in subcuticular fashion. Wounds washed and dressed. The patient had tolerated procedure well. Estimated blood loss was about 25 mL. DARBY ELLIOTT M.D. [id number]
--- NOTE | 2019-12-26 12:17 | PATH ---
Surgical Pathology Report Patient Name: ASHLY DEL ROSARIO [facility]. Rec. #: [id number] /Age/Gender: 1990 (Age: 29) / F Account: [id number] Location: AMBULATORY SURG Taken: 12/21/2019 Received: 12/21/2019 Reported: 12/26/2019 Physicians: Susan Cherry M.D. Specimen(s) Received A: UTERUS AND CERVIX B: LEFT FALLOPIAN TUBE C: RIGHT FALLOPIAN TUBE Clinical History Fibroid uterus, pelvic pain, endometrial polyp Final Diagnosis A. UTERUS AND CERVIX, HYSTERECTOMY: PROLIFERATIVE ENDOMETRIUM WITH MILD CHRONIC ENDOMETRITIS. MYOMETRIUM WITH FOCAL SCATTERED EOSINOPHILIC INFILTRATE. CERVIX WITH ACUTE AND CHRONIC CERVICITIS AND SQUAMOUS METAPLASIA. B. LEFT FALLOPIAN TUBE, SALPINGECTOMY: PORTION OF FALLOPIAN TUBE WITH NO SIGNIFICANT PATHOLOGIC CHANGE. C. RIGHT FALLOPIAN TUBE, SALPINGECTOMY: PORTION OF FALLOPIAN TUBE WITH NO SIGNIFICANT PATHOLOGIC CHANGE. Electronically Signed Darryl Burk M.D. Gross Description A. Received in formalin labeled "uterus, cervix," is a 98 g uterus with an attached cervix and no attached adnexa. The specimen measures 8.5 cm from superior to inferior, 5.2 cm from left to right and 4.5 cm from anterior to posterior. The serosa is randolph dave and smooth. The attached cervix measures 3 cm in length and averages 2.3 cm in diameter. The ectocervix is randolph, smooth and glistening. The endocervix is unremarkable. The endometrial cavity measures 3.8 cm in length and 2 cm from cornu to cornu. The endometrium is randolph-brown and averages 0.1 cm in thickness. The myometrium is randolph-pink and averages 2.2 cm in thickness. No intramural nodules are identified. Engagement Quality Consultant sections are submitted in 6 cassettes as follows: 1-anterior cervix; 2-posterior cervix; 3-0-eyyvrstv endomyometrium; 5-5-txrptyqsg endomyometrium. B. Received in formalin labeled "left fallopian tube," is a 3.5 cm in length fimbriated fallopian tube. The outer surface is randolph-paige and smooth. Sectioning reveals an unremarkable lumen. Engagement Quality Consultant sections are submitted in 2 cassettes as follows: 1-fimbria; 2-cross sections of fallopian tube. C. Received in formalin labeled "right fallopian tube," is a 1.2 cm in length fimbriated portion of fallopian tube. The outer surface is randolph-paige and smooth. Sectioning reveals an unremarkable lumen. Engagement Quality Consultant sections are submitted in 2 cassettes as follows: 1-fimbria; 2-cross sections of fallopian tube. 12/22/2019 [facility]/2019
== END 2019-12-22 10:35 | disposition home or self-care (01) ==
LOC: JASU-SURG 04:49 → JASUSAT 04:49 → J3N 14:12 → JASUSAT 12-22 10:35
PROVIDERS: ATTEND Obstetrics & Gynecology
PROC: 8E0W4CZ Robotic Assisted Procedure of Trunk Region, Percutaneous Endoscopic Approach (ICD-10-PCS; 2019-12-21)
PROC: 0UT9FZZ Resection of Uterus, Via Natural or Artificial Opening With Percutaneous Endoscopic Assistance (ICD-10-PCS; principal; 2019-12-21 07:30)
PROC: 0UT7FZZ Resection of Bilateral Fallopian Tubes, Via Natural or Artificial Opening With Percutaneous Endoscopic Assistance (ICD-10-PCS; 2019-12-21 07:30)
DX: N80.0 Endometriosis of uterus (principal); N71.1 Chronic inflammatory disease of uterus; E66.01 Morbid (severe) obesity due to excess calories
CPT/HCPCS: 58552; S2900; 36415; 80048; 84703; 85027; 86850; 86900; 86901; 88302-TC; 88307-TC; 94010; 94760

== ENCOUNTER 2023-03-26 17:54 | Emergency (ER) | payer OTHER ==
[2023-03-26 18:41] VITALS: BMI 41.6
[2023-03-26] MEDS ORDERED: ACETAMINOPHEN 1000 MG/100 ML BAG IVPB ONE (19:57)
[2023-03-26] MEDS ORDERED: ONDANSETRON 4 MG/2 ML VIAL IVPUSH ONE (19:57)
[2023-03-26] MEDS ORDERED: LACTATED RINGERS SOLUTION 1,000 ML/1,000 ML INFUS.BAG IV ONE (19:57)
[2023-03-26] MEDS ORDERED: ACETAMINOPHEN INJECTION 100 ML IVPB ONE (20:23)
[2023-03-26] MEDS ORDERED: ONDANSETRON 4 MG/2 ML VIAL ONE (20:23)
[2023-03-26 21:00] LABS: BASO % 0.1 % (0-2.0); EOS % 2.9 % (0-4.5); HEMOGLOBIN 14.6 GM/dL (10.7-15.3); LYMPH % 24.8 % (8-40); MCH 29.5 pg (25.7-33.7); MCHC 34.8 g/dl (32.0-36.0); MEAN CELL VOLUME 84.8 fl (80-96); MEAN PLT VOLUME 7.6 fl (7.5-11.1); MONO % 5.2 % (3.8-10.2); PLATELET COUNT 244 10^3/uL (134-434); RBC 4.95 M/mm3 (3.60-5.2); WHITE BLOOD COUNT 9.2 K/mm3 (4.0-10.0)
[2023-03-26 21:09] LABS: INR 1.17 (0.83-1.09); PROTHROMBIN TIME (PATIENT) 13.6 SEC (9.7-13.0)
[2023-03-26 21:12] LABS: ACTIVATED PTT 35.8 SECONDS (25.2-36.5)
[2023-03-26 21:19] LABS: POTASSIUM 3.5 mmol/L (3.5-5.1)
[2023-03-26 21:22] LABS: ALBUMIN 3.9 g/dl (3.4-5.0); CALCIUM 9.6 mg/dL (8.5-10.1)
[2023-03-26 21:23] LABS: BLOOD UREA NITROGEN 12.1 mg/dL (7-18); MAGNESIUM 2.1 mg/dL (1.8-2.4)
[2023-03-26 21:25] LABS: CREATININE 0.7 mg/dL (0.55-1.3)
[2023-03-26 21:27] LABS: BILIRUBIN,TOTAL 0.6 mg/dL (0.2-1); TOT PROT 8.2 g/dl (6.4-8.2)
[2023-03-27 00:12] VITALS: BP 105/60; PULSE 72; RESP 17; TEMP 98.6
[2023-03-27 00:34] LABS: PH,URINE 5.5 (5.0-8.0); URINE APPEARANCE CLEAR; URINE BILIRUBIN NEGATIVE (NEGATIVE); URINE COLOR YELLOW; URINE GLUCOSE (UA) NEGATIVE (NEGATIVE); URINE KETONE NEGATIVE (NEGATIVE); URINE LEUK ESTERASE NEGATIVE (NEGATIVE); URINE NITRITE NEGATIVE (NEGATIVE); URINE PROTEIN TRACE (NEGATIVE); URINE UROBILINOGEN 0.2 mg/dL (0.2-1.0)
[2023-03-27 02:04] LABS: HCG,QUALITATIVE URINE Negative
== END 2023-03-27 00:14 | disposition home or self-care (01) ==
LOC: JER 17:54
PROC: 3E033NZ Introduction of Analgesics, Hypnotics, Sedatives into Peripheral Vein, Percutaneous Approach (ICD-10-PCS; principal; 2023-03-26)
PROC: 3E033GC Introduction of Other Therapeutic Substance into Peripheral Vein, Percutaneous Approach (ICD-10-PCS; 2023-03-26)
PROC: 3E0337Z Introduction of Electrolytic and Water Balance Substance into Peripheral Vein, Percutaneous Approach (ICD-10-PCS; 2023-03-26)
DX: R11.2 Nausea with vomiting, unspecified (principal); R19.7 Diarrhea, unspecified; R10.13 Epigastric pain; Z20.822 Contact with and (suspected) exposure to COVID-19
CPT/HCPCS: 0241U-QW; 36415; 74177-TC; 76705-TC; 80053; 81003; 83690; 83735; 84703; 85025; 85610; 85730; 87086; 93005; 93010; 99285-25; Q9967

== ENCOUNTER 2024-04-06 04:14 | Day surgery (SDC) | payer OTHER ==
[2024-04-04 10:59] VITALS: BMI 46.9
[2024-04-06] MEDS ORDERED: PHENAZOPYRIDINE HCL 100 MG TABLET (FP) ONE (06:34)
[2024-04-06] MEDS: PHENAZOPYRIDINE HCL 100 MG TABLET (FP) PO ONE (06:38)
[2024-04-06] MEDS ORDERED: CEFAZOLIN SODIUM 2 GM in DEXTROSE 5%-WATER - 100 ML IVPB ONE (07:00)
[2024-04-06] MEDS ORDERED: PHENAZOPYRIDINE HCL 100 MG TABLET (FP) PO ONE (07:00)
[2024-04-06] MEDS ORDERED: ACETAMINOPHEN 1000 MG/100 ML BAG IVPB ONE (07:00)
[2024-04-06] MEDS ORDERED: TRANEXAMIC ACID 1000 MG/10 ML VIAL IVPUSH ONE (07:30)
[2024-04-06] MEDS ORDERED: MIDAZOLAM HCL 2 MG/2 ML SINGLE DOSE VIAL ONE (07:42)
[2024-04-06] MEDS ORDERED: HYDROmorphone HCl 2 MG/ML VIAL ONE (07:42)
[2024-04-06] MEDS ORDERED: DEXAMETHASONE SOD PHOSPHATE 4 MG/1 ML VIAL ONE (07:46)
[2024-04-06] MEDS ORDERED: PROPOFOL 40 ML ONE (07:46)
[2024-04-06] MEDS ORDERED: LIDOCAINE HCL/PF 2% SDV 5ML VIAL ONE (07:46)
[2024-04-06] MEDS ORDERED: ceFAZolin SODIUM 1 GM VIAL ONE (07:46)
[2024-04-06] MEDS ORDERED: ONDANSETRON 4 MG/2 ML VIAL ONE (07:46)
[2024-04-06] MEDS ORDERED: SUGAMMADEX SODIUM 200 MG/2 ML VIAL ONE (07:47)
[2024-04-06] MEDS ORDERED: ROCURONIUM BROMIDE 50 MG/5 ML SYRINGE ONE (07:47)
[2024-04-06] MEDS ORDERED: MINERAL OIL/PETROLATUM,WHITE 3.5 GM TUBE ONE (07:48)
[2024-04-06] MEDS ORDERED: SEVOFLURANE 250 ML BTL ONE (08:00)
[2024-04-06] MEDS: ceFAZolin SODIUM 1 GM VIAL IVPB ONE (08:07)
[2024-04-06] MEDS ORDERED: ACETAMINOPHEN INJECTION 100 ML ONE (08:21)
[2024-04-06] MEDS ORDERED: KETOROLAC TROMETHAMINE 30 MG/1 ML VIAL ONE (09:06)
[2024-04-06] MEDS ORDERED: oxyCODONE HCL 5 MG TABLET PO PRN (09:37)
[2024-04-06] MEDS ORDERED: LACTATED RINGERS SOLUTION 1,000 ML IV SCH (09:45)
[2024-04-06] MEDS: ONDANSETRON 4 MG/2 ML VIAL IVPUSH PRN (09:58)
[2024-04-06] MEDS ORDERED: HALOPERIDOL LACTATE 5 MG/ML ONE (10:38)
[2024-04-06] MEDS: HALOPERIDOL LACTATE 5 MG/ML IVPUSH ONE (10:40)
[2024-04-06 11:20] VITALS: RESP 16
[2024-04-06 11:53] VITALS: BP 102/75; PULSE 60; TEMP 97.7
== END 2024-04-06 12:56 | disposition home or self-care (01) ==
LOC: JASU-SURG 04:14
PROVIDERS: ATTEND Obstetrics & Gynecology
PROC: 0UB64ZZ Excision of Left Fallopian Tube, Percutaneous Endoscopic Approach (ICD-10-PCS; 2024-04-06)
PROC: 8E0W4CZ Robotic Assisted Procedure of Trunk Region, Percutaneous Endoscopic Approach (ICD-10-PCS; 2024-04-06)
PROC: 0UT14ZZ Resection of Left Ovary, Percutaneous Endoscopic Approach (ICD-10-PCS; principal; 2024-04-06 07:30)
DX: N83.12 Corpus luteum cyst of left ovary (principal)
CPT/HCPCS: 58661; S2900; 81025; 86850; 86900; 86901; 88305-TC; 94760; J0131

== ENCOUNTER 2024-06-16 17:30 | Emergency (ER) | payer OTHER ==
[2024-06-16 17:33] VITALS: BP 110/58; PULSE 100; RESP 18; TEMP 98.1; BMI 49.4
[2024-06-16] MEDS ORDERED: LIDOCAINE 4% PATCH TP ONE (18:39)
[2024-06-16] MEDS ORDERED: METHOCARBAMOL 500 MG TABLET ONE (18:39)
[2024-06-16] MEDS ORDERED: KETOROLAC TROMETHAMINE 30 MG/1 ML VIAL ONE (18:39)
[2024-06-16] MEDS ORDERED: ACETAMINOPHEN 500 MG TABLET (FP) ONE (18:39)
[2024-06-16] MEDS: LIDOCAINE 4% PATCH TP ONE (18:49)
[2024-06-16] MEDS: METHOCARBAMOL 500 MG TABLET PO ONE (18:49)
[2024-06-16] MEDS: KETOROLAC TROMETHAMINE 30 MG/1 ML VIAL IM ONE (18:50)
[2024-06-16] MEDS: ACETAMINOPHEN 500 MG TABLET (FP) PO ONE (18:50)
== END 2024-06-16 21:07 | disposition home or self-care (01) ==
LOC: JERFT 17:30
PROC: 3E0233Z Introduction of Anti-inflammatory into Muscle, Percutaneous Approach (ICD-10-PCS; principal; 2024-06-16)
DX: M62.838 Other muscle spasm (principal); M54.2 Cervicalgia; V43.12XA Car passenger injured in collision with other type car in nontraffic accident, initial encounter; Y92.410 Unspecified street and highway as the place of occurrence of the external cause
CPT/HCPCS: 70450-TC; 72100-TC-FY; 72125-TC; 99285-25

== ENCOUNTER 2024-10-09 09:26 | Day surgery (SDC) | payer OTHER ==
[2024-10-09 10:10] VITALS: BMI 47.6
[2024-10-09] MEDS ORDERED: EPINEPHrine 1:1,000 1,000 MCG/ML ML ONE (11:39)
[2024-10-09] MEDS ORDERED: BUPIVACAINE HCL/EPINEPHRINE/PF 30 ML VIAL IJ ONE (11:39)
[2024-10-09] MEDS ORDERED: BUPIVACAINE HCL/PF 0.5% (5 MG/ML) 30 ML VIAL IJ ONE (12:52)
[2024-10-09] MEDS ORDERED: MIDAZOLAM HCL 2 MG/2 ML SINGLE DOSE VIAL ONE (12:52)
[2024-10-09] MEDS ORDERED: DEXAMETHASONE SOD PHOSPHATE 10 MG/1 ML VIAL ONE (12:53)
[2024-10-09] MEDS ORDERED: FENTANYL CITRATE/PF 50 MCG/ML VIAL ONE (12:53)
[2024-10-09] MEDS ORDERED: PROPOFOL 60 ML ONE (13:11)
[2024-10-09] MEDS ORDERED: SUCCINYLCHOLINE CHLORIDE 200 MG/10 ML SYRINGE ONE (13:13)
[2024-10-09] MEDS ORDERED: ROCURONIUM BROMIDE 50 MG/5 ML SYRINGE ONE (13:32)
[2024-10-09] MEDS ORDERED: ACETAMINOPHEN INJECTION 100 ML ONE (14:10)
[2024-10-09] MEDS ORDERED: SUGAMMADEX SODIUM 200 MG/2 ML VIAL ONE (14:12)
[2024-10-09] MEDS ORDERED: ONDANSETRON 4 MG/2 ML VIAL IVPUSH PRN (14:37)
[2024-10-09] MEDS ORDERED: LACTATED RINGERS SOLUTION 1,000 ML IV SCH (14:45)
[2024-10-09 14:49] VITALS: RESP 16
[2024-10-09] MEDS ORDERED: KETOROLAC TROMETHAMINE 30 MG/1 ML VIAL ONE (14:54)
[2024-10-09] MEDS: KETOROLAC TROMETHAMINE 30 MG/1 ML VIAL IVPUSH ONE (14:56)
[2024-10-09 15:28] VITALS: TEMP 96.9
[2024-10-09 16:01] VITALS: BP 131/72; PULSE 73
== END 2024-10-09 16:45 | disposition home or self-care (01) ==
LOC: FASU 09:26
PROVIDERS: ATTEND Orthopaedic Surgery
PROC: 0RNJ4ZZ Release Right Shoulder Joint, Percutaneous Endoscopic Approach (ICD-10-PCS; principal; 2024-10-09 13:43)
DX: S46.011D Strain of muscle(s) and tendon(s) of the rotator cuff of right shoulder, subsequent encounter (principal); M75.51 Bursitis of right shoulder; M75.21 Bicipital tendinitis, right shoulder; S43.431D Superior glenoid labrum lesion of right shoulder, subsequent encounter; X58.XXXD Exposure to other specified factors, subsequent encounter
CPT/HCPCS: 94760; J1100